=== PATIENT | male | born 1955 | race Caucasian/White ===

== ENCOUNTER 2017-02-27 23:52 | Emergency (ER) | payer OTHER ==
[~2017-02-27] VITALS: Ht 188 cm; Wt 66.4 kg
[~2017-02-27 23:52] MED LIST: AMOX TR-K CLV1 EAC4 PO; ASPIR 8181 M1 PO; ASPIR-LOW81 MG PO; ASPIRIN325 M1 PO; ASPIRIN81 M1 PO; ATORVASTATIN CA40 MG PO; ATORVASTATIN CA80 MG PO; BACTRIM,SEPT1 TABLET PO; BENICAR20 MG PO; CEFDINIR300 MG PO; CHILD ASPIRIN81 M1 PO; CILOSTAZOL100 MG PO; CIPRO500 MG PO; CIPROFLOXACIN 500 MG PO; CLOPIDOGREL75 MG PO; CLOTRIMAZOLE15 GM TP; CYANOCOBALAM1000 MCG PO; DILAUDID2 MG PO; DILAUDID4 MG PO; DOMPERIDONE; DOMPERIDONE1 GM GT; DOMPERIDONE1 GM PO; ECOTRIN81 M1 PO; ELIQUIS5 MG PO; ENDOCET 5-3251 EACH PO; FLEXERIL10 MG PO; FLOMAX0.4 M1 PO; GABAPENTIN300 MG PO; HYDROMORPHONE HC4 MG PO; KEFLEX500 MG PO; LIPITOR20 MG PO; LIPITOR40 MG PO; LISINOPRIL2.5 MG PO; LO-DOSE ASPIRIN81 M1 PO; LOPRESSOR25 MG PO; MEDROL DOSEPAK4 MG PO; MIRALAX255 GM PO; MOBIC7.5 MG PO; NAPROSYN500 MG PO; NEURONTIN300 MG PO; NEXIUM40 M1 PO; NEXIUM40 MG PO; NICOTINE PATCH1 EAC2 TD; NITROGLYCERIN0.4 MG SL; NORCO 5/3251 TABLET PO; OXYCODONE-ACET1 EACH PO; OXYCODONE-APAP1 EACH PO; PERCOCET 10/1 TABLET PO; PERCOCET 5/31 TABLET PO; PLAVIX75 MG PO; PLETAL50 M1 PO; PLETAL50 MG PO; PRAVASTATIN SOD80 MG PO; PREDNISONE20 MG PO; PROCARDIA XL30 MG PO; PROCTOCORT30 M1 PR; RANITIDINE HCL300 M1 PO; ROXICET 5-3251 EACH PO; SENEXON-S TABL1 EACH PO; SENNA S TABLET1 EACH PO; TORADOL10 MG PO; TYLENOL EXTRA500 MG PO; TYLENOL PM1 CAPLET PO; VALIUM5 MG PO; VITAMIN B12-FO1 EACH PO; Vicodin,Norco 5/325 PO; ZOFRAN ODT4 MG PO; ZOLPIDEM TARTRAT5 MG PO
[2017-02-28 00:23] LABS: HEMATOCRIT 46.6 % (38.0-50.0); MCH 27.8 PG (29.0-34.0); MCHC 32.6 G/DL (30.0-36.0); MCV 85.2 FL (86-99); MEAN PLAT.VOLUME 10.8 uM^3 (9.0-12.4); PLATELET COUNT 232 K/uL (156-360); RBC DIS.WIDTH-CV 17.1 % (11.8-14.6); RBC DIS.WIDTH-SD 52.9 % (39-53); RED BLOOD COUNT 5.47 M/uL (4.00-5.50); WHITE BLOOD COUNT 8.2 K/uL (4.1-10.2)
[2017-02-28 00:29] LABS: CHLORIDE 99 mEq/L (99-109); POTASSIUM 3.6 mEq/L (3.7-5.4); SODIUM 136 mEq/L (136-147)
[2017-02-28 00:32] LABS: GLUCOSE 99 mg/dL (70-99)
[2017-02-28 00:33] LABS: ANION GAP 11 MEQ/L (2-14)
[2017-02-28 00:34] LABS: TOTAL BILIRUBIN 0.6 mg/dL (0.0-1.0)
[2017-02-28 00:35] LABS: ALKALINE PHOSPHATASE 86 IU/L (3-129); GFR ESTIMATE (CALCULATED) > 59 mL/min/
[2017-02-28 00:36] LABS: UREA NITROGEN (BUN) 12 mg/dL (9-23)
[2017-02-28 02:09] VITALS: BP 114/77
== END 2017-02-28 02:10 | disposition home or self-care (01) ==
LOC: EME 23:52
DX: R10.816 Epigastric abdominal tenderness (principal); K92.2 Gastrointestinal hemorrhage, unspecified; R51 Headache; Z98.890 Other specified postprocedural states; Z85.01 Personal history of malignant neoplasm of esophagus; Z79.82 Long term (current) use of aspirin; Z72.0 Tobacco use
CPT/HCPCS: 74177; 80053; 81003; 85027; 99281; 99285

== ENCOUNTER 2017-03-19 20:58 | Observation (INO) | payer OTHER ==
[~2017-03-19] VITALS: Ht 167.6 cm; Wt 64.0 kg
[2017-03-19 22:10] LABS: HEMATOCRIT 40.3 % (38.0-50.0); MCH 28.1 PG (29.0-34.0); MCHC 32.5 G/DL (30.0-36.0); MCV 86.3 FL (86-99); MEAN PLAT.VOLUME 10.8 uM^3 (9.0-12.4); PLATELET COUNT 229 K/uL (156-360); RBC DIS.WIDTH-CV 16.5 % (11.8-14.6); RBC DIS.WIDTH-SD 52.2 % (39-53); RED BLOOD COUNT 4.67 M/uL (4.00-5.50)
[2017-03-19 22:12] LABS: CHLORIDE 95 mEq/L (99-109); POTASSIUM 3.3 mEq/L (3.7-5.4); SODIUM 140 mEq/L (136-147)
[2017-03-19 22:14] LABS: PROTHROMBIN TIME 10.6 (9.2-11.2); PTT 25.6 (25-32)
[2017-03-19 22:14] LABS: GLUCOSE 95 mg/dL (70-99)
[2017-03-19 22:15] LABS: ANION GAP 11 MEQ/L (2-14)
[2017-03-19 22:16] LABS: TOTAL BILIRUBIN 0.5 mg/dL (0.0-1.0)
[2017-03-19 22:17] LABS: BILIRUBIN NEGATIVE; BLOOD NEGATIVE; COLOR YELLOW ((YELLOW)); GLUCOSE (STRIP) NEGATIVE; KETONES NEGATIVE; LEUKOCYTES NEGATIVE; NITRITE NEGATIVE; PROTEIN (STRIP) 30; SPECIFIC GRAVITY 1.008 (1.000-1.030); UROBILINOGEN 0.2 MG/DL (0.2-1.0)
[2017-03-19 22:18] LABS: ALKALINE PHOSPHATASE 68 IU/L (3-129); GFR ESTIMATE (CALCULATED) > 59 mL/min/
[2017-03-19 22:19] LABS: UREA NITROGEN (BUN) 21 mg/dL (9-23)
[2017-03-19 22:20] LABS: ADD MIUA? NO; UCUL ADDED? NO
[2017-03-19 22:21] LABS: LIPASE 6 U/L (1.0-51.0)
[2017-03-20] MEDS ORDERED: RANITIDINE HCL300 MG PO (00:45)
[2017-03-20] MEDS ORDERED: METOPROLOL SUCC25 MG PO (00:45)
[2017-03-20 07:13] VITALS: BP 127/71
[2017-03-20] MEDS ORDERED: METOPROLOL TART25 MG PO (10:35)
[2017-03-20] MEDS ORDERED: NEURONTIN600 MG PO (10:36)
[2017-03-20 12:05] VITALS: BP 104/54
[2017-03-20 13:24] LABS: METH RESISTANT S AUREUS PCR NEGATIVE (NEGATIVE)
[2017-03-20 13:26] LABS: PROBE CHECK PASS; SPECIMEN PROCESSING CONTROL PASS
[2017-03-20 15:12] VITALS: BP 127/76
[2017-03-20 19:00] VITALS: BP 128/78
[2017-03-21] VITALS: BP 126/68
[2017-03-21 04:00] VITALS: BP 132/68
[2017-03-21 07:23] LABS: HEMATOCRIT 37.4 % (38.0-50.0); MCH 27.5 PG (29.0-34.0); MCHC 30.7 G/DL (30.0-36.0); MCV 89.5 FL (86-99); MEAN PLAT.VOLUME 11.9 uM^3 (9.0-12.4); PLATELET COUNT 169 K/uL (156-360); RBC DIS.WIDTH-CV 16.7 % (11.8-14.6); RBC DIS.WIDTH-SD 55.1 % (39-53); RED BLOOD COUNT 4.18 M/uL (4.00-5.50)
[2017-03-21 07:30] LABS: WHITE BLOOD COUNT 4.3 K/uL (4.1-10.2)
[2017-03-21 07:44] LABS: ANION GAP 6 MEQ/L (2-14); CHLORIDE 105 MEQ/L (99-109); GFR ESTIMATE (CALCULATED) > 59 mL/min/; GLUCOSE 80 mg/dL (70-99); SAMPLE HEMOLYSIS CHECK 2; SAMPLE ICTERIC CHECK 0; SAMPLE LIPEMIA CHECK 0; SODIUM 141 MEQ/L (136-147); UREA NITROGEN (BUN) 12 mg/dL (9-23)
[2017-03-21 07:48] LABS: POTASSIUM 4.2 MEQ/L (3.7-5.4)
[2017-03-21 09:16] VITALS: BP 126/69
[2017-03-21] MEDS ORDERED: REGLAN10 MG PO (11:02)
[2017-03-21] MEDS ORDERED: SUCRALFATE1 GM/10 ML PO (11:02)
== END 2017-03-21 13:16 | disposition home or self-care (01) ==
LOC: EME → EDBD 20:58 → EDOF 03-20 05:51 → 5WEST 03-20 07:07
PROVIDERS: Emergency Medicine; Hospitalist; Nurse Practitioner Family
PROC: 0DJ08ZZ Inspection of Upper Intestinal Tract, Via Natural or Artificial Opening Endoscopic (ICD-10-PCS; principal; 2017-03-20)
DX: R11.2 Nausea with vomiting, unspecified (principal); R62.7 Adult failure to thrive; R10.9 Unspecified abdominal pain; I73.9 Peripheral vascular disease, unspecified; I10 Essential (primary) hypertension; Z89.512 Acquired absence of left leg below knee; F17.200 Nicotine dependence, unspecified, uncomplicated; Z85.01 Personal history of malignant neoplasm of esophagus; R13.10 Dysphagia, unspecified; K22.10 Ulcer of esophagus without bleeding; K29.60 Other gastritis without bleeding
CPT/HCPCS: 71260; 74177; 80048; 80053; 81003; 83605; 83690; 85027; 85610; 85730; 86900; 86901; 87641; 93005; 99281; 99285; C9113; G0378; J1644; J2270; J2405; J2704; J2765; J3480; J7030

== ENCOUNTER 2017-03-28 23:33 | Emergency (ER) | payer OTHER ==
[~2017-03-28] VITALS: Ht 182.9 cm; Wt 64.7 kg
[~2017-03-28 23:33] MED LIST changes: +METOPROLOL SUCC25 MG PO; +METOPROLOL TART25 MG PO; +NEURONTIN600 MG PO; +RANITIDINE HCL300 MG PO; +REGLAN10 MG PO; +SUCRALFATE1 GM/10 ML PO
[2017-03-29 00:20] LABS: HEMATOCRIT 41.3 % (38.0-50.0); MCHC 32.4 G/DL (30.0-36.0); MCV 86.4 FL (86-99); MEAN PLAT.VOLUME 10.8 uM^3 (9.0-12.4); PLATELET COUNT 266 K/uL (156-360); RBC DIS.WIDTH-CV 15.7 % (11.8-14.6); RBC DIS.WIDTH-SD 49.5 % (39-53); RED BLOOD COUNT 4.78 M/uL (4.00-5.50); WHITE BLOOD COUNT 6.5 K/uL (4.1-10.2)
[2017-03-29 00:36] LABS: CHLORIDE 104 mEq/L (99-109); POTASSIUM 3.1 mEq/L (3.7-5.4); SODIUM 140 mEq/L (136-147)
[2017-03-29 00:38] LABS: GLUCOSE 95 mg/dL (70-99)
[2017-03-29 00:39] LABS: INTER. NORMALIZED RATIO 1.1; PROTHROMBIN TIME 10.7 (9.2-11.2); PTT 27.8 (25-32)
[2017-03-29 00:40] LABS: ANION GAP 6 MEQ/L (2-14); TOTAL BILIRUBIN 0.5 mg/dL (0.0-1.0)
[2017-03-29 00:42] LABS: ALKALINE PHOSPHATASE 67 IU/L (3-129); GFR ESTIMATE (CALCULATED) > 59 mL/min/
[2017-03-29 00:43] LABS: UREA NITROGEN (BUN) 13 mg/dL (9-23)
[2017-03-29 00:45] LABS: LIPASE 8 U/L (1.0-51.0)
[2017-03-29 01:02] LABS: ADD MIUA? NO; BILIRUBIN NEGATIVE; BLOOD NEGATIVE; COLOR STRAW ((YELLOW)); GLUCOSE (STRIP) NEGATIVE; KETONES NEGATIVE; LEUKOCYTES NEGATIVE; NITRITE NEGATIVE; PROTEIN (STRIP) NEGATIVE; SPECIFIC GRAVITY 1.005 (1.000-1.030); UCUL ADDED? NO; UROBILINOGEN 0.2 MG/DL (0.2-1.0)
[2017-03-29] MEDS ORDERED: ZOFRAN8 MG PO (02:17)
[2017-03-29 03:23] VITALS: BP 130/64
== END 2017-03-29 03:24 | disposition home or self-care (01) ==
LOC: EME → EDBD 23:33 → EME 23:33
PROVIDERS: Emergency Medicine
DX: K25.4 Chronic or unspecified gastric ulcer with hemorrhage (principal); R11.2 Nausea with vomiting, unspecified; E87.6 Hypokalemia; K21.9 Gastro-esophageal reflux disease without esophagitis; G89.29 Other chronic pain; I73.9 Peripheral vascular disease, unspecified; N40.0 Benign prostatic hyperplasia without lower urinary tract symptoms; Z86.718 Personal history of other venous thrombosis and embolism; Z85.01 Personal history of malignant neoplasm of esophagus; Z95.820 Peripheral vascular angioplasty status with implants and grafts; Z89.512 Acquired absence of left leg below knee; F17.200 Nicotine dependence, unspecified, uncomplicated; Z79.82 Long term (current) use of aspirin
CPT/HCPCS: 80053; 81003; 83690; 85027; 85610; 85730; 99281; 99285; C9113; J3480; J7030

== ENCOUNTER 2017-04-07 02:48 | Emergency (ER) | payer OTHER ==
[~2017-04-07] VITALS: Ht 182.9 cm; Wt 69.0 kg
[~2017-04-07 02:48] MED LIST changes: +ZOFRAN8 MG PO
[2017-04-07] MEDS ORDERED: OXYCODONE H5 MG/5 ML PO (03:45)
[2017-04-07 04:05] VITALS: BP 126/74
== END 2017-04-07 04:00 | disposition home or self-care (01) ==
LOC: EME 02:48
DX: R13.10 Dysphagia, unspecified (principal); Z85.01 Personal history of malignant neoplasm of esophagus; R63.4 Abnormal weight loss; Z68.20 Body mass index [BMI] 20.0-20.9, adult; I10 Essential (primary) hypertension; Z90.49 Acquired absence of other specified parts of digestive tract; F17.200 Nicotine dependence, unspecified, uncomplicated

== ENCOUNTER 2017-04-21 01:22 | Emergency (ER) | payer OTHER ==
[~2017-04-21] VITALS: Ht 182.9 cm; Wt 66.8 kg
[~2017-04-21 01:22] MED LIST changes: +OXYCODONE H5 MG/5 ML PO
[2017-04-21 02:32] LABS: MCH 28.3 PG (29.0-34.0); MCHC 32.2 G/DL (30.0-36.0); MEAN PLAT.VOLUME 11.6 uM^3 (9.0-12.4); PLATELET COUNT 227 K/uL (156-360); RBC DIS.WIDTH-SD 48.1 % (39-53); RED BLOOD COUNT 4.66 M/uL (4.00-5.50); WHITE BLOOD COUNT 10.4 K/uL (4.1-10.2)
[2017-04-21 02:35] LABS: CHLORIDE 112 mEq/L (99-109); POTASSIUM 2.8 mEq/L (3.7-5.4); SODIUM 140 mEq/L (136-147)
[2017-04-21 02:37] LABS: GLUCOSE 58 mg/dL (70-99)
[2017-04-21 02:38] LABS: ANION GAP 6 MEQ/L (2-14)
[2017-04-21 02:41] LABS: GFR ESTIMATE (CALCULATED) > 59 mL/min/
[2017-04-21 02:42] LABS: UREA NITROGEN (BUN) 19 mg/dL (9-23)
[2017-04-21 02:43] LABS: CREATINE KINASE 62 IU/L (1-294); TOTAL CK 62 IU/L (1-294)
[2017-04-21 02:45] LABS: PROTHROMBIN TIME 10.2 (9.2-11.2); PTT 24.3 (25-32)
[2017-04-21 02:47] LABS: TROP-I INTERPRETATION NEGATIVE; TROPONIN-I < 0.01 ng/mL (0.0-0.30)
[2017-04-21 02:50] LABS: CK-MB 1.1 ng/mL (0.0-4.9)
[2017-04-21] MEDS ORDERED: PANTOPRAZOLE SO40 MG PO (05:23)
[2017-04-21] MEDS ORDERED: LASIX40 MG PO (05:24)
[2017-04-21 06:10] VITALS: BP 111/55
== END 2017-04-21 06:11 | disposition short-term general hospital (02) ==
LOC: EME 01:22
PROVIDERS: Emergency Medicine
DX: T82.392A Other mechanical complication of femoral arterial graft (bypass), initial encounter (principal); I99.8 Other disorder of circulatory system; I73.9 Peripheral vascular disease, unspecified; I10 Essential (primary) hypertension; Z89.512 Acquired absence of left leg below knee; Z86.718 Personal history of other venous thrombosis and embolism; F17.200 Nicotine dependence, unspecified, uncomplicated
CPT/HCPCS: 71010; 80048; 82550; 82553; 83605; 84484; 85027; 85610; 85730; 93005; 93926; 99281; 99285; J3010

== ENCOUNTER 2017-04-26 23:52 | Emergency (ER) | payer OTHER ==
[~2017-04-26] VITALS: Ht 182.9 cm; Wt 66.3 kg
[~2017-04-26 23:52] MED LIST changes: +LASIX40 MG PO; +PANTOPRAZOLE SO40 MG PO
[2017-04-27 00:01] VITALS: BP 156/96
== END 2017-04-27 02:39 | disposition left against medical advice (07) ==
LOC: EME 23:52
DX: M79.89 Other specified soft tissue disorders (principal); M79.671 Pain in right foot; L53.9 Erythematous condition, unspecified; Z53.21 Procedure and treatment not carried out due to patient leaving prior to being seen by health care provider

== ENCOUNTER 2017-04-28 20:06 | Emergency (ER) | payer OTHER ==
[~2017-04-28] VITALS: Ht 182.9 cm; Wt 66.4 kg
[2017-04-28 21:29] LABS: CHLORIDE 107 mEq/L (99-109); POTASSIUM 3.5 mEq/L (3.7-5.4); SODIUM 142 mEq/L (136-147)
[2017-04-28 21:31] LABS: GLUCOSE 106 mg/dL (70-99)
[2017-04-28 21:32] LABS: ANION GAP 8 MEQ/L (2-14)
[2017-04-28 21:35] LABS: GFR ESTIMATE (CALCULATED) > 59 mL/min/
[2017-04-28 21:36] LABS: MCH 28.8 PG (29.0-34.0); MCHC 31.9 G/DL (30.0-36.0); MCV 90.1 FL (86-99); MEAN PLAT.VOLUME 11.2 uM^3 (9.0-12.4); PLATELET COUNT 211 K/uL (156-360); RBC DIS.WIDTH-CV 15.7 % (11.8-14.6); UREA NITROGEN (BUN) 15 mg/dL (9-23); WHITE BLOOD COUNT 5.2 K/uL (4.1-10.2)
[2017-04-28 22:41] LABS: RED BLOOD COUNT 3.44 M/uL (4.00-5.50)
[2017-04-28 22:47] LABS: PROTHROMBIN TIME 10.3 (9.2-11.2)
[2017-04-29] MEDS ORDERED: CLEOCIN300 MG PO (00:56)
[2017-04-29] MEDS ORDERED: PERCOCET 5/31 TABLET PO (01:00)
[2017-04-29 01:27] VITALS: BP 124/72
== END 2017-04-29 01:25 | disposition home or self-care (01) ==
LOC: EME 20:06
DX: L03.115 Cellulitis of right lower limb (principal); S30.22XA Contusion of scrotum and testes, initial encounter; X58.XXXA Exposure to other specified factors, initial encounter; Z98.890 Other specified postprocedural states; Z95.820 Peripheral vascular angioplasty status with implants and grafts; N43.3 Hydrocele, unspecified; Z79.82 Long term (current) use of aspirin; Z89.512 Acquired absence of left leg below knee; F17.200 Nicotine dependence, unspecified, uncomplicated
CPT/HCPCS: 76870; 80048; 85027; 85610; 85730; 93971; 99281; 99284; J2270; J3010

== ENCOUNTER 2017-04-30 23:48 | Inpatient (IN) | payer OTHER ==
[~2017-04-30] VITALS: Ht 182.9 cm; Wt 73.9 kg
[~2017-04-30 23:48] MED LIST changes: +CLEOCIN300 MG PO
[2017-05-01 01:00] LABS: HEMATOCRIT 30.7 % (38.0-50.0); MCH 28.7 PG (29.0-34.0); MCHC 31.9 G/DL (30.0-36.0); MEAN PLAT.VOLUME 10.9 uM^3 (9.0-12.4); PLATELET COUNT 229 K/uL (156-360); RBC DIS.WIDTH-CV 15.8 % (11.8-14.6); RED BLOOD COUNT 3.41 M/uL (4.00-5.50); WHITE BLOOD COUNT 4.9 K/uL (4.1-10.2)
[2017-05-01 01:09] LABS: CHLORIDE 106 mEq/L (99-109); POTASSIUM 3.7 mEq/L (3.7-5.4); SODIUM 141 mEq/L (136-147)
[2017-05-01 01:11] LABS: GLUCOSE 100 mg/dL (70-99); INTER. NORMALIZED RATIO 1.1; PTT 27.3 (25-32)
[2017-05-01 01:12] LABS: ANION GAP 5 MEQ/L (2-14)
[2017-05-01 01:13] LABS: TOTAL BILIRUBIN 0.6 mg/dL (0.0-1.0)
[2017-05-01 01:15] LABS: ALKALINE PHOSPHATASE 77 IU/L (3-129); GFR ESTIMATE (CALCULATED) > 59 mL/min/
[2017-05-01 01:16] LABS: UREA NITROGEN (BUN) 19 mg/dL (9-23)
[2017-05-01 01:18] LABS: LIPASE 10 U/L (1.0-51.0)
[2017-05-01] MEDS ORDERED: SUCRALFATE1 GM PO (02:49)
[2017-05-01] MEDS ORDERED: ELAVIL10 MG PO (02:50)
[2017-05-01] MEDS ORDERED: ONDANSETRON HCL8 MG PO (02:52)
[2017-05-01] MEDS ORDERED: ECOTRIN325 MG PO (02:52)
[2017-05-01] MEDS ORDERED: ELIQUIS5 MG PO (02:53)
[2017-05-01 05:30] VITALS: BP 156/74
[2017-05-01 07:50] VITALS: BP 134/83
[2017-05-01 12:49] VITALS: BP 147/93
[2017-05-01 15:47] VITALS: BP 149/86
[2017-05-01] MEDS ORDERED: CLEOCIN300 MG PO (17:36)
[2017-05-01] MEDS ORDERED: VENTOLIN HFA18 GM IH (17:39)
[2017-05-01 22:31] VITALS: BP 128/63
[2017-05-02 01:39] VITALS: BP 138/86
[2017-05-02 06:19] VITALS: BP 147/70
[2017-05-02 07:32] VITALS: BP 138/72
[2017-05-02 07:37] LABS: ANION GAP 7 MEQ/L (2-14); CHLORIDE 104 MEQ/L (99-109); GFR ESTIMATE (CALCULATED) > 59 mL/min/; GLUCOSE 90 mg/dL (70-99); POTASSIUM 3.3 MEQ/L (3.7-5.4); SAMPLE HEMOLYSIS CHECK 0; SAMPLE ICTERIC CHECK 0; SAMPLE LIPEMIA CHECK 0; SODIUM 142 MEQ/L (136-147); UREA NITROGEN (BUN) 11 mg/dL (9-23)
[2017-05-02 16:10] VITALS: BP 126/64
[2017-05-03 00:27] VITALS: BP 127/72
[2017-05-03 08:00] VITALS: BP 119/72
[2017-05-03 17:35] VITALS: BP 112/66
[2017-05-03 19:16] VITALS: BP 124/64
[2017-05-03 23:33] VITALS: BP 106/75
[2017-05-04 03:47] VITALS: BP 116/61
[2017-05-04 07:11] VITALS: BP 128/65
[2017-05-04] MEDS ORDERED: BACTRIM,SEPT1 TABLET PO (12:51)
== END 2017-05-04 14:13 | disposition home or self-care (01) | DRG 603 ==
LOC: EME 23:48 → EDOF 05-01 02:20 → 2EASTP 05-01 02:20
PROVIDERS: Emergency Medicine; Internal Medicine
DX: L03.115 Cellulitis of right lower limb (principal); I73.9 Peripheral vascular disease, unspecified; D64.9 Anemia, unspecified; I10 Essential (primary) hypertension; C15.9 Malignant neoplasm of esophagus, unspecified; Z82.49 Family history of ischemic heart disease and other diseases of the circulatory system; Z89.512 Acquired absence of left leg below knee; Z87.891 Personal history of nicotine dependence
CPT/HCPCS: 73610; 80048; 80053; 80202; 83605; 83690; 85027; 85610; 85730; 87040; 99202; 99281; 99285; J2270; J3370; J7030

== ENCOUNTER 2017-05-06 21:44 | Emergency (ER) | payer OTHER ==
[~2017-05-06] VITALS: Ht 182.9 cm; Wt 67.3 kg
[~2017-05-06 21:44] MED LIST changes: +ECOTRIN325 MG PO; +ELAVIL10 MG PO; +ONDANSETRON HCL8 MG PO; +SUCRALFATE1 GM PO; +VENTOLIN HFA18 GM IH
[2017-05-06 22:25] LABS: CHLORIDE 107 mEq/L (99-109); POTASSIUM 3.7 mEq/L (3.7-5.4)
[2017-05-06 22:26] LABS: SODIUM 139 mEq/L (136-147)
[2017-05-06 22:28] LABS: GLUCOSE 96 mg/dL (70-99)
[2017-05-06 22:29] LABS: ANION GAP 8 MEQ/L (2-14)
[2017-05-06 22:31] LABS: ALKALINE PHOSPHATASE 70 IU/L (3-129); GFR ESTIMATE (CALCULATED) > 59 mL/min/
[2017-05-06 22:32] LABS: TOTAL BILIRUBIN 0.3 mg/dL (0.0-1.0)
[2017-05-06 22:33] LABS: UREA NITROGEN (BUN) 13 mg/dL (9-23)
[2017-05-06 22:44] LABS: HEMATOCRIT 32.1 % (38.0-50.0); MCH 28.4 PG (29.0-34.0); MCHC 31.2 G/DL (30.0-36.0); MCV 91.2 FL (86-99); PLATELET COUNT 253 K/uL (156-360); RBC DIS.WIDTH-CV 15.5 % (11.8-14.6); RBC DIS.WIDTH-SD 51.7 % (39-53); RED BLOOD COUNT 3.52 M/uL (4.00-5.50); WHITE BLOOD COUNT 4.4 K/uL (4.1-10.2)
[2017-05-07] MEDS ORDERED: ZYVOX600 MG PO (02:52)
[2017-05-07 03:09] VITALS: BP 151/96
== END 2017-05-07 03:12 | disposition home or self-care (01) ==
LOC: EME 21:44
DX: L03.115 Cellulitis of right lower limb (principal); I10 Essential (primary) hypertension; K21.9 Gastro-esophageal reflux disease without esophagitis; F17.200 Nicotine dependence, unspecified, uncomplicated; Z85.01 Personal history of malignant neoplasm of esophagus; Z86.718 Personal history of other venous thrombosis and embolism; Z95.820 Peripheral vascular angioplasty status with implants and grafts; Z89.512 Acquired absence of left leg below knee; Z79.01 Long term (current) use of anticoagulants; Z79.82 Long term (current) use of aspirin
CPT/HCPCS: 80053; 85027; 93971; 99281; 99285

== ENCOUNTER 2017-05-11 21:38 | Emergency (ER) | payer OTHER ==
[~2017-05-11] VITALS: Ht 182.9 cm; Wt 68.1 kg
[~2017-05-11 21:38] MED LIST changes: +ZYVOX600 MG PO
[2017-05-11 22:59] LABS: HEMATOCRIT 36.2 % (38.0-50.0); MCH 27.9 PG (29.0-34.0); MCHC 30.9 G/DL (30.0-36.0); MEAN PLAT.VOLUME 11.1 uM^3 (9.0-12.4); PLATELET COUNT 285 K/uL (156-360); RBC DIS.WIDTH-CV 15.1 % (11.8-14.6); RBC DIS.WIDTH-SD 50.3 % (39-53); RED BLOOD COUNT 4.02 M/uL (4.00-5.50); WHITE BLOOD COUNT 5.6 K/uL (4.1-10.2)
[2017-05-11 23:07] LABS: CHLORIDE 105 mEq/L (99-109); POTASSIUM 4.4 mEq/L (3.7-5.4); SODIUM 139 mEq/L (136-147)
[2017-05-11 23:10] LABS: GLUCOSE 87 mg/dL (70-99)
[2017-05-11 23:11] LABS: ANION GAP 7 MEQ/L (2-14)
[2017-05-11 23:13] LABS: ALKALINE PHOSPHATASE 69 IU/L (3-129); GFR ESTIMATE (CALCULATED) > 59 mL/min/
[2017-05-11 23:15] LABS: UREA NITROGEN (BUN) 16 mg/dL (9-23)
[2017-05-11 23:18] LABS: TOTAL BILIRUBIN 0.5 mg/dL (0.0-1.0)
[2017-05-12 01:54] VITALS: BP 133/83
[2017-05-12] MEDS ORDERED: AZITHROMYCIN250 MG1 PO (19:09)
== END 2017-05-12 01:54 | disposition home or self-care (01) ==
LOC: EME 21:38
DX: M79.604 Pain in right leg (principal); Z87.442 Personal history of urinary calculi; Z87.891 Personal history of nicotine dependence
CPT/HCPCS: 80053; 81003; 85027; 93971; 99281; 99284

== ENCOUNTER 2017-05-12 17:12 | Emergency (ER) | payer OTHER ==
[~2017-05-12] VITALS: Ht 182.9 cm; Wt 67.4 kg
[2017-05-12 17:51] LABS: MCH 27.7 PG (29.0-34.0); MCHC 31.1 G/DL (30.0-36.0); MCV 89.2 FL (86-99); MEAN PLAT.VOLUME 10.7 uM^3 (9.0-12.4); PLATELET COUNT 276 K/uL (156-360); RBC DIS.WIDTH-CV 14.9 % (11.8-14.6); RBC DIS.WIDTH-SD 48.5 % (39-53); RED BLOOD COUNT 4.15 M/uL (4.00-5.50); WHITE BLOOD COUNT 8.1 K/uL (4.1-10.2)
[2017-05-12 18:02] LABS: CHLORIDE 103 mEq/L (99-109); POTASSIUM 4.4 mEq/L (3.7-5.4); SODIUM 137 mEq/L (136-147)
[2017-05-12 18:05] LABS: ANION GAP 9 MEQ/L (2-14)
[2017-05-12 18:07] LABS: GFR ESTIMATE (CALCULATED) > 59 mL/min/
[2017-05-12 18:08] LABS: UREA NITROGEN (BUN) 18 mg/dL (9-23)
[2017-05-12 18:09] LABS: GLUCOSE 111 mg/dL (70-99)
[2017-05-12 18:14] LABS: TROP-I INTERPRETATION NEGATIVE; TROPONIN-I < 0.01 ng/mL (0.0-0.30)
[2017-05-12] MEDS ORDERED: AZITHROMYCIN250 MG1 PO (19:09)
[2017-05-12 19:34] VITALS: BP 139/73
== END 2017-05-12 19:37 | disposition home or self-care (01) ==
LOC: EME 17:12
DX: J40 Bronchitis, not specified as acute or chronic (principal); Z87.442 Personal history of urinary calculi; Z85.01 Personal history of malignant neoplasm of esophagus; Z86.718 Personal history of other venous thrombosis and embolism; Z89.512 Acquired absence of left leg below knee; Z87.891 Personal history of nicotine dependence
CPT/HCPCS: 71020; 80048; 84484; 85027; 93005; 99281; 99284

== ENCOUNTER 2017-05-13 20:35 | Inpatient (IN) | payer OTHER ==
[~2017-05-13] VITALS: Ht 182.9 cm; Wt 70.1 kg
[~2017-05-13 20:35] MED LIST changes: +AZITHROMYCIN250 MG1 PO
[2017-05-14 00:31] LABS: CHLORIDE 107 mEq/L (99-109); POTASSIUM 4.5 mEq/L (3.7-5.4); SODIUM 143 mEq/L (136-147)
[2017-05-14 00:32] LABS: GLUCOSE 104 mg/dL (70-99)
[2017-05-14 00:34] LABS: ANION GAP 9 MEQ/L (2-14)
[2017-05-14 00:36] LABS: GFR ESTIMATE (CALCULATED) > 59 mL/min/
[2017-05-14 00:37] LABS: UREA NITROGEN (BUN) 17 mg/dL (9-23)
[2017-05-14 00:38] LABS: PROTHROMBIN TIME 10.4 (9.2-11.2); PTT 26.4 (25-32)
[2017-05-14 00:40] LABS: HEMATOCRIT 29.3 % (38.0-50.0); MCH 27.7 PG (29.0-34.0); MCHC 30.4 G/DL (30.0-36.0); MCV 91.3 FL (86-99); MEAN PLAT.VOLUME 11.2 uM^3 (9.0-12.4); PLATELET COUNT 315 K/uL (156-360); RBC DIS.WIDTH-CV 14.7 % (11.8-14.6); RBC DIS.WIDTH-SD 49.7 % (39-53); RED BLOOD COUNT 3.21 M/uL (4.00-5.50); WHITE BLOOD COUNT 6.1 K/uL (4.1-10.2)
[2017-05-14] MEDS ORDERED: METOCLOPRAMIDE10 MG PO (01:38)
[2017-05-14] MEDS ORDERED: EMERGEN-C 1,01000 MG PO (01:38)
[2017-05-14] MEDS ORDERED: MEN 50 PLUS MU1 EACH PO (01:39)
[2017-05-14 03:57] VITALS: BP 120/60
[2017-05-14 07:12] LABS: TROP-I INTERPRETATION NEGATIVE; TROPONIN-I 0.02 ng/mL (0.0-0.30)
[2017-05-14 07:30] VITALS: BP 113/57
[2017-05-14 12:02] VITALS: BP 103/55
[2017-05-14 12:08] LABS: TROP-I INTERPRETATION NEGATIVE; TROPONIN-I < 0.01 ng/mL (0.0-0.30)
[2017-05-14 17:17] VITALS: BP 111/58
[2017-05-14 20:10] VITALS: BP 124/74
[2017-05-14 23:29] VITALS: BP 95/52
[2017-05-15 03:38] VITALS: BP 101/64
[2017-05-15 08:12] LABS: BASOPHIL COUNT 0.1 K/uL (0-0.1); EOSINOPHIL (%) 2.5 % (0-5); EOSINOPHIL COUNT 0.1 K/uL (0-0.3); HEMATOCRIT 36.3 % (38.0-50.0); IMMATURE GRANULOCYTE (%) 0.2 % (0.0-0.7); INSTRUMENT ABS NEUTROPHIL CT 2.1 K/uL; LYMPHOCYTE COUNT 2.3 K/uL (1.0-2.8); MCH 28.5 PG (29.0-34.0); MCHC 30.9 G/DL (30.0-36.0); MCV 92.4 FL (86-99); MEAN PLAT.VOLUME 11.3 uM^3 (9.0-12.4); MONOCYTE (%) 13.8 % (3-12); MONOCYTE COUNT 0.7 K/uL (0-0.8); NEUTROPHIL (%) 39.2 % (45-76); NEUTROPHIL COUNT 2.1 K/uL (1.8-6.4); PLATELET COUNT 225 K/uL (156-360); RBC DIS.WIDTH-CV 15.2 % (11.8-14.6); RBC DIS.WIDTH-SD 51.7 % (39-53); RED BLOOD COUNT 3.93 M/uL (4.00-5.50); WHITE BLOOD COUNT 5.3 K/uL (4.1-10.2)
[2017-05-15 08:14] VITALS: BP 122/58
[2017-05-15 08:28] LABS: ANION GAP 6 MEQ/L (2-14); CHLORIDE 107 MEQ/L (99-109); GFR ESTIMATE (CALCULATED) > 59 mL/min/; GLUCOSE 83 mg/dL (70-99); POTASSIUM 4.9 MEQ/L (3.7-5.4); SAMPLE HEMOLYSIS CHECK 0; SAMPLE ICTERIC CHECK 0; SAMPLE LIPEMIA CHECK 0; SODIUM 142 MEQ/L (136-147); UREA NITROGEN (BUN) 18 mg/dL (9-23)
[2017-05-15 11:53] VITALS: BP 123/59
== END 2017-05-15 13:12 | disposition home or self-care (01) | DRG 603 ==
LOC: EME 20:35 → EDOF 05-14 03:04 → 5WEST 05-14 03:51 → 3EAST 05-14 14:10 → 5WEST 05-14 14:10 → 3EAST 05-14 19:38
PROVIDERS: Emergency Medicine; Hospitalist
DX: L03.115 Cellulitis of right lower limb (principal); I42.9 Cardiomyopathy, unspecified; I71.2 Thoracic aortic aneurysm, without rupture; F17.210 Nicotine dependence, cigarettes, uncomplicated; G50.0 Trigeminal neuralgia; I10 Essential (primary) hypertension; J44.9 Chronic obstructive pulmonary disease, unspecified; I49.3 Ventricular premature depolarization; I73.9 Peripheral vascular disease, unspecified; I70.211 Atherosclerosis of native arteries of extremities with intermittent claudication, right leg; Z80.8 Family history of malignant neoplasm of other organs or systems; Z82.49 Family history of ischemic heart disease and other diseases of the circulatory system; Z85.01 Personal history of malignant neoplasm of esophagus; Z87.442 Personal history of urinary calculi; Z89.512 Acquired absence of left leg below knee; R00.8 Other abnormalities of heart beat; R53.83 Other fatigue
CPT/HCPCS: 80048; 83605; 84484; 85025; 85027; 85610; 85730; 87040; 87801; 93005; 93926; 99281; 99284; J2270; J2405; J7030

== ENCOUNTER 2017-05-16 06:16 | Emergency (ER) | payer OTHER ==
[~2017-05-16] VITALS: Ht 182.9 cm; Wt 64.1 kg
[~2017-05-16 06:16] MED LIST changes: +EMERGEN-C 1,01000 MG PO; +MEN 50 PLUS MU1 EACH PO; +METOCLOPRAMIDE10 MG PO
[2017-05-16 07:40] LABS: BASOPHIL COUNT 0.1 K/uL (0-0.1); EOSINOPHIL (%) 1.5 % (0-5); EOSINOPHIL COUNT 0.1 K/uL (0-0.3); HEMATOCRIT 36.4 % (38.0-50.0); IMMATURE GRANULOCYTE (%) 0.2 % (0.0-0.7); LYMPHOCYTE COUNT 2.2 K/uL (1.0-2.8); MCH 27.6 PG (29.0-34.0); MCHC 30.8 G/DL (30.0-36.0); MCV 89.7 FL (86-99); MEAN PLAT.VOLUME 11.1 uM^3 (9.0-12.4); MONOCYTE COUNT 0.7 K/uL (0-0.8); NEUTROPHIL (%) 50.1 % (45-76); PLATELET COUNT 256 K/uL (156-360); RBC DIS.WIDTH-CV 14.7 % (11.8-14.6); RBC DIS.WIDTH-SD 48.3 % (39-53); RED BLOOD COUNT 4.06 M/uL (4.00-5.50)
[2017-05-16 07:47] LABS: PROTHROMBIN TIME 9.8 (9.2-11.2)
[2017-05-16 07:53] LABS: GLUCOSE 84 mg/dL (70-99)
[2017-05-16 07:57] LABS: GFR ESTIMATE (CALCULATED) > 59 mL/min/
[2017-05-16 07:58] LABS: UREA NITROGEN (BUN) 18 mg/dL (9-23)
[2017-05-16 08:09] LABS: ANION GAP 7 MEQ/L (2-14); CHLORIDE 106 mEq/L (99-109); POTASSIUM 4.5 mEq/L (3.7-5.4); SODIUM 139 mEq/L (136-147)
[2017-05-16 10:47] VITALS: BP 147/75
== END 2017-05-16 10:50 | disposition home or self-care (01) ==
LOC: EME 06:16
PROVIDERS: Emergency Medicine
DX: M79.604 Pain in right leg (principal); I73.9 Peripheral vascular disease, unspecified; Z89.512 Acquired absence of left leg below knee
CPT/HCPCS: 80048; 85025; 85610; 99281; 99284

== ENCOUNTER 2017-05-19 02:27 | Emergency (ER) | payer OTHER ==
[~2017-05-19] VITALS: Ht 182.9 cm; Wt 65.0 kg
[2017-05-19 03:00] LABS: ADD MIUA? NO; BILIRUBIN NEGATIVE; BLOOD NEGATIVE; COLOR YELLOW ((YELLOW)); GLUCOSE (STRIP) NEGATIVE; KETONES NEGATIVE; LEUKOCYTES NEGATIVE; NITRITE NEGATIVE; PROTEIN (STRIP) NEGATIVE; SPECIFIC GRAVITY 1.016 (1.000-1.030); UCUL ADDED? NO; UROBILINOGEN 0.2 MG/DL (0.2-1.0)
[2017-05-19 03:01] LABS: HEMATOCRIT 37.7 % (38.0-50.0); MCH 27.5 PG (29.0-34.0); MCHC 30.5 G/DL (30.0-36.0); MCV 90.2 FL (86-99); MEAN PLAT.VOLUME 10.5 uM^3 (9.0-12.4); PLATELET COUNT 229 K/uL (156-360); RBC DIS.WIDTH-CV 14.6 % (11.8-14.6); RBC DIS.WIDTH-SD 48.5 % (39-53); RED BLOOD COUNT 4.18 M/uL (4.00-5.50); WHITE BLOOD COUNT 6.3 K/uL (4.1-10.2)
[2017-05-19 03:09] LABS: CHLORIDE 104 mEq/L (99-109); POTASSIUM 4.1 mEq/L (3.7-5.4); SODIUM 140 mEq/L (136-147)
[2017-05-19 03:11] LABS: GLUCOSE 103 mg/dL (70-99)
[2017-05-19 03:12] LABS: ANION GAP 8 MEQ/L (2-14)
[2017-05-19 03:13] LABS: TOTAL BILIRUBIN 0.4 mg/dL (0.0-1.0)
[2017-05-19 03:14] LABS: ALKALINE PHOSPHATASE 72 IU/L (3-129)
[2017-05-19 03:15] LABS: GFR ESTIMATE (CALCULATED) > 59 mL/min/
[2017-05-19 03:18] LABS: LIPASE 11 U/L (1.0-51.0)
[2017-05-19 03:23] LABS: UREA NITROGEN (BUN) 22 mg/dL (9-23)
[2017-05-19 04:16] VITALS: BP 143/96
[2017-05-20] MEDS ORDERED: BENTYL20 MG PO (02:03)
== END 2017-05-19 04:22 | disposition home or self-care (01) ==
LOC: EME 02:27
DX: R10.9 Unspecified abdominal pain (principal); R11.2 Nausea with vomiting, unspecified; I10 Essential (primary) hypertension; J44.9 Chronic obstructive pulmonary disease, unspecified; K21.9 Gastro-esophageal reflux disease without esophagitis; Z87.442 Personal history of urinary calculi; Z87.891 Personal history of nicotine dependence
CPT/HCPCS: 80053; 81003; 83690; 85027; 99281; 99284

== ENCOUNTER 2017-05-19 22:40 | Emergency (ER) | payer OTHER ==
[~2017-05-19] VITALS: Ht 167.6 cm; Wt 65.0 kg
[2017-05-19 23:40] LABS: HEMATOCRIT 35.5 % (38.0-50.0); MCHC 31.3 G/DL (30.0-36.0); MCV 89.4 FL (86-99); MEAN PLAT.VOLUME 11.2 uM^3 (9.0-12.4); PLATELET COUNT 231 K/uL (156-360); RBC DIS.WIDTH-CV 14.6 % (11.8-14.6); RBC DIS.WIDTH-SD 47.7 % (39-53); RED BLOOD COUNT 3.97 M/uL (4.00-5.50); WHITE BLOOD COUNT 7.9 K/uL (4.1-10.2)
[2017-05-19 23:48] LABS: CHLORIDE 104 mEq/L (99-109); POTASSIUM 3.7 mEq/L (3.7-5.4); SODIUM 140 mEq/L (136-147)
[2017-05-19 23:51] LABS: GLUCOSE 117 mg/dL (70-99)
[2017-05-19 23:52] LABS: ANION GAP 9 MEQ/L (2-14)
[2017-05-19 23:54] LABS: ALKALINE PHOSPHATASE 70 IU/L (3-129); GFR ESTIMATE (CALCULATED) > 59 mL/min/
[2017-05-19 23:56] LABS: UREA NITROGEN (BUN) 18 mg/dL (9-23)
[2017-05-19 23:58] LABS: LIPASE 10 U/L (1.0-51.0); TOTAL BILIRUBIN 0.5 mg/dL (0.0-1.0)
[2017-05-20] MEDS ORDERED: BENTYL20 MG PO (02:03)
[2017-05-20 02:48] VITALS: BP 137/90
[2017-05-21] MEDS ORDERED: LORAZEPAM0.5 MG PO (01:07)
== END 2017-05-20 02:49 | disposition home or self-care (01) ==
LOC: EME 22:40
PROVIDERS: Emergency Medicine
DX: R11.2 Nausea with vomiting, unspecified (principal); K59.00 Constipation, unspecified; I10 Essential (primary) hypertension; J44.9 Chronic obstructive pulmonary disease, unspecified; K21.9 Gastro-esophageal reflux disease without esophagitis; I73.9 Peripheral vascular disease, unspecified; I71.4 Abdominal aortic aneurysm, without rupture; N40.0 Benign prostatic hyperplasia without lower urinary tract symptoms; Z85.01 Personal history of malignant neoplasm of esophagus; Z89.512 Acquired absence of left leg below knee; Z86.718 Personal history of other venous thrombosis and embolism; Z95.820 Peripheral vascular angioplasty status with implants and grafts; Z87.891 Personal history of nicotine dependence; Z87.442 Personal history of urinary calculi
CPT/HCPCS: 74177; 80053; 83605; 83690; 85027; 99281; 99285; J2765; J7030

== ENCOUNTER 2017-05-21 00:36 | Emergency (ER) | payer OTHER ==
[~2017-05-21] VITALS: Ht 182.9 cm; Wt 69.4 kg
[~2017-05-21 00:36] MED LIST changes: +BENTYL20 MG PO
[2017-05-21] MEDS ORDERED: LORAZEPAM0.5 MG PO (01:07)
[2017-05-21 01:55] LABS: BASOPHIL COUNT 0.1 K/uL (0-0.1); EOSINOPHIL (%) 1.6 % (0-5); EOSINOPHIL COUNT 0.1 K/uL (0-0.3); HEMATOCRIT 34.5 % (38.0-50.0); IMMATURE GRANULOCYTE (%) 0.3 % (0.0-0.7); INSTRUMENT ABS NEUTROPHIL CT 3.7 K/uL; LYMPHOCYTE COUNT 2.2 K/uL (1.0-2.8); MCH 27.6 PG (29.0-34.0); MCV 88.9 FL (86-99); MEAN PLAT.VOLUME 11.4 uM^3 (9.0-12.4); MONOCYTE (%) 10.6 % (3-12); MONOCYTE COUNT 0.7 K/uL (0-0.8); NEUTROPHIL (%) 54.6 % (45-76); NEUTROPHIL COUNT 3.7 K/uL (1.8-6.4); PLATELET COUNT 214 K/uL (156-360); RBC DIS.WIDTH-CV 14.6 % (11.8-14.6); RBC DIS.WIDTH-SD 46.9 % (39-53); RED BLOOD COUNT 3.88 M/uL (4.00-5.50); WHITE BLOOD COUNT 6.8 K/uL (4.1-10.2)
[2017-05-21 02:05] LABS: CHLORIDE 105 mEq/L (99-109); POTASSIUM 3.7 mEq/L (3.7-5.4); SODIUM 141 mEq/L (136-147)
[2017-05-21 02:07] LABS: GLUCOSE 131 mg/dL (70-99); PROTHROMBIN TIME 10.6 (9.2-11.2); PTT 27.3 (25-32)
[2017-05-21 02:08] LABS: ANION GAP 9 MEQ/L (2-14)
[2017-05-21 02:11] LABS: GFR ESTIMATE (CALCULATED) > 59 mL/min/; UREA NITROGEN (BUN) 14 mg/dL (9-23)
[2017-05-21 05:53] VITALS: BP 135/62
== END 2017-05-21 05:54 | disposition home or self-care (01) ==
LOC: EME 00:36
PROVIDERS: Emergency Medicine
DX: I73.9 Peripheral vascular disease, unspecified (principal); J44.9 Chronic obstructive pulmonary disease, unspecified; I10 Essential (primary) hypertension; K21.9 Gastro-esophageal reflux disease without esophagitis; Z87.442 Personal history of urinary calculi; Z90.49 Acquired absence of other specified parts of digestive tract; Z87.891 Personal history of nicotine dependence
CPT/HCPCS: 75635; 80048; 85025; 85610; 85730; 93005; 99281; 99285; J3010; J7030

== ENCOUNTER 2017-05-24 13:38 | Emergency (ER) | payer OTHER ==
[~2017-05-24] VITALS: Ht 182.9 cm; Wt 65.9 kg
[~2017-05-24 13:38] MED LIST changes: +LORAZEPAM0.5 MG PO
[2017-05-24 17:27] VITALS: BP 132/72
== END 2017-05-24 17:30 | disposition home or self-care (01) ==
LOC: EME 13:38
DX: R78.89 Finding of other specified substances, not normally found in blood (principal); I10 Essential (primary) hypertension; Z89.512 Acquired absence of left leg below knee; Z86.718 Personal history of other venous thrombosis and embolism; Z79.01 Long term (current) use of anticoagulants; Z79.82 Long term (current) use of aspirin; Z82.49 Family history of ischemic heart disease and other diseases of the circulatory system; Z87.891 Personal history of nicotine dependence
CPT/HCPCS: 99281; 99284

== ENCOUNTER 2017-05-27 02:59 | Emergency (ER) | payer OTHER ==
[~2017-05-27] VITALS: Ht 182.9 cm; Wt 69.1 kg
[2017-05-27 04:56] LABS: HEMATOCRIT 37.1 % (38.0-50.0); MCH 27.9 PG (29.0-34.0); MCHC 31.3 G/DL (30.0-36.0); MCV 89.2 FL (86-99); MEAN PLAT.VOLUME 11.3 uM^3 (9.0-12.4); PLATELET COUNT 191 K/uL (156-360); RBC DIS.WIDTH-CV 14.6 % (11.8-14.6); RBC DIS.WIDTH-SD 47.9 % (39-53); RED BLOOD COUNT 4.16 M/uL (4.00-5.50); WHITE BLOOD COUNT 6.1 K/uL (4.1-10.2)
[2017-05-27 05:05] LABS: CHLORIDE 105 mEq/L (99-109); POTASSIUM 3.8 mEq/L (3.7-5.4); SODIUM 140 mEq/L (136-147)
[2017-05-27 05:06] LABS: GLUCOSE 117 mg/dL (70-99)
[2017-05-27 05:08] LABS: ANION GAP 5 MEQ/L (2-14)
[2017-05-27 05:10] LABS: GFR ESTIMATE (CALCULATED) > 59 mL/min/
[2017-05-27 05:11] LABS: UREA NITROGEN (BUN) 13 mg/dL (9-23)
[2017-05-27 06:16] VITALS: BP 124/71
[2017-05-27] MEDS ORDERED: KLOR-CON M2020 MEQ PO (23:34)
[2017-05-27] MEDS ORDERED: VITAMIN C1000 MG PO (23:34)
[2017-05-27] MEDS ORDERED: FUROSEMIDE20 MG PO (23:34)
== END 2017-05-27 06:17 | disposition home or self-care (01) ==
LOC: EME 02:59
PROVIDERS: Emergency Medicine
DX: I73.9 Peripheral vascular disease, unspecified (principal); I10 Essential (primary) hypertension; Z79.01 Long term (current) use of anticoagulants; Z79.82 Long term (current) use of aspirin; Z87.891 Personal history of nicotine dependence; Z89.512 Acquired absence of left leg below knee; Z86.718 Personal history of other venous thrombosis and embolism
CPT/HCPCS: 80048; 83605; 85027; 99281; 99284; J2270

== ENCOUNTER 2017-05-27 17:18 | Observation (INO) | payer OTHER ==
[~2017-05-27] VITALS: Ht 182.9 cm; Wt 70.1 kg
[2017-05-27 18:09] LABS: HEMATOCRIT 37.5 % (38.0-50.0); MCH 27.8 PG (29.0-34.0); MCHC 31.5 G/DL (30.0-36.0); MCV 88.4 FL (86-99); MEAN PLAT.VOLUME 11.8 uM^3 (9.0-12.4); PLATELET COUNT 211 K/uL (156-360); RBC DIS.WIDTH-CV 14.5 % (11.8-14.6); RBC DIS.WIDTH-SD 47.2 % (39-53); RED BLOOD COUNT 4.24 M/uL (4.00-5.50); WHITE BLOOD COUNT 7.5 K/uL (4.1-10.2)
[2017-05-27 18:29] LABS: TROP-I INTERPRETATION NEGATIVE; TROPONIN-I 0.02 ng/mL (0.0-0.30)
[2017-05-27 21:20] LABS: CHLORIDE 100 mEq/L (99-109); POTASSIUM 3.8 mEq/L (3.7-5.4); SODIUM 141 mEq/L (136-147)
[2017-05-27 21:23] LABS: ANION GAP 10 MEQ/L (2-14)
[2017-05-27 21:26] LABS: GFR ESTIMATE (CALCULATED) > 59 mL/min/; UREA NITROGEN (BUN) 18 mg/dL (9-23)
[2017-05-27 22:41] LABS: GLUCOSE 93 mg/dL (70-99)
[2017-05-27] MEDS ORDERED: KLOR-CON M2020 MEQ PO (23:34)
[2017-05-27] MEDS ORDERED: FUROSEMIDE20 MG PO (23:34)
[2017-05-27] MEDS ORDERED: VITAMIN C1000 MG PO (23:34)
[2017-05-28 02:36] LABS: TROP-I INTERPRETATION NEGATIVE; TROPONIN-I 0.02 ng/mL (0.0-0.30)
[2017-05-28 07:55] VITALS: BP 151/76
[2017-05-28 08:43] LABS: BASE EXCESS 6.9 mEq/L (-3 to +3); BICARBONATE 30.3 mEq/L (22-26); CARBOXY HGB 1.5 % (0-5); COMMENTS - BLOOD GASES A+C+; FI02 21 %; METHEMOGLOBIN 1.1 % (0-1.5); PCO2 38 mm Hg (35-45); PO2 96 mm Hg (80-100); SITE RR; pH 7.51 (7.35-7.45)
[2017-05-28 09:52] LABS: TROP-I INTERPRETATION NEGATIVE; TROPONIN-I 0.03 ng/mL (0.0-0.30)
[2017-05-28 12:26] VITALS: BP 148/68
[2017-05-28 16:48] VITALS: BP 143/64
[2017-05-28 21:00] VITALS: BP 135/68
[2017-05-29 00:27] VITALS: BP 131/71
[2017-05-29 03:33] LABS: HEMATOCRIT 35.8 % (38.0-50.0); MCH 27.6 PG (29.0-34.0); MCHC 31.3 G/DL (30.0-36.0); MCV 88.2 FL (86-99); MEAN PLAT.VOLUME 11.7 uM^3 (9.0-12.4); PLATELET COUNT 214 K/uL (156-360); RBC DIS.WIDTH-CV 14.7 % (11.8-14.6); RED BLOOD COUNT 4.06 M/uL (4.00-5.50); WHITE BLOOD COUNT 6.9 K/uL (4.1-10.2)
[2017-05-29 03:44] LABS: CHLORIDE 107 mEq/L (99-109); POTASSIUM 3.8 mEq/L (3.7-5.4); SODIUM 143 mEq/L (136-147)
[2017-05-29 03:46] LABS: GLUCOSE 111 mg/dL (70-99)
[2017-05-29 03:47] LABS: ANION GAP 6 MEQ/L (2-14)
[2017-05-29 03:50] LABS: GFR ESTIMATE (CALCULATED) > 59 mL/min/; UREA NITROGEN (BUN) 15 mg/dL (9-23)
[2017-05-29 03:56] LABS: TROP-I INTERPRETATION NEGATIVE; TROPONIN-I 0.01 ng/mL (0.0-0.30)
[2017-05-29 04:57] VITALS: BP 122/55
[2017-05-29 07:00] VITALS: BP 112/63
[2017-05-29] MEDS ORDERED: FUROSEMIDE40 MG PO (10:55)
[2017-05-29] MEDS ORDERED: LOSARTAN POTASS25 MG PO (10:55)
[2017-05-29 11:44] VITALS: BP 99/56
== END 2017-05-29 13:00 | disposition home or self-care (01) ==
LOC: EME 17:18 → 5WEST 05-28 00:53 → EDOF 05-28 00:53 → 5WEST 05-28 07:28
PROVIDERS: Hospitalist; Internal Medicine
DX: R07.9 Chest pain, unspecified (principal); K21.9 Gastro-esophageal reflux disease without esophagitis; I25.10 Atherosclerotic heart disease of native coronary artery without angina pectoris; R10.13 Epigastric pain; R42 Dizziness and giddiness; R11.2 Nausea with vomiting, unspecified; I10 Essential (primary) hypertension; I73.9 Peripheral vascular disease, unspecified; I71.4 Abdominal aortic aneurysm, without rupture; Z87.891 Personal history of nicotine dependence; Z85.01 Personal history of malignant neoplasm of esophagus; Z89.512 Acquired absence of left leg below knee
CPT/HCPCS: 36600; 71020; 80048; 80048 91; 82803; 84484; 85027; 93005; 94640; 94760; 94799; 99202; 99281; 99285; G0378; J2405; J7030

== ENCOUNTER 2017-05-31 16:09 | Emergency (ER) | payer OTHER ==
[~2017-05-31] VITALS: Ht 182.9 cm; Wt 72.7 kg
[~2017-05-31 16:09] MED LIST changes: +FUROSEMIDE20 MG PO; +FUROSEMIDE40 MG PO; +KLOR-CON M2020 MEQ PO; +LOSARTAN POTASS25 MG PO; +VITAMIN C1000 MG PO
[2017-05-31 16:58] LABS: HEMATOCRIT 35.5 % (38.0-50.0); MCH 27.7 PG (29.0-34.0); MCHC 31.8 G/DL (30.0-36.0); MEAN PLAT.VOLUME 11.5 uM^3 (9.0-12.4); PLATELET COUNT 204 K/uL (156-360); RBC DIS.WIDTH-CV 14.4 % (11.8-14.6); RBC DIS.WIDTH-SD 46.2 % (39-53); RED BLOOD COUNT 4.08 M/uL (4.00-5.50); WHITE BLOOD COUNT 5.1 K/uL (4.1-10.2)
[2017-05-31 17:04] LABS: ADD MIUA? NO; BILIRUBIN NEGATIVE; BLOOD NEGATIVE; COLOR YELLOW ((YELLOW)); GLUCOSE (STRIP) NEGATIVE; KETONES NEGATIVE; LEUKOCYTES NEGATIVE; NITRITE NEGATIVE; PROTEIN (STRIP) NEGATIVE; SPECIFIC GRAVITY 1.014 (1.000-1.030); UCUL ADDED? NO; UROBILINOGEN 0.2 MG/DL (0.2-1.0)
[2017-05-31 17:09] LABS: CHLORIDE 101 mEq/L (99-109); POTASSIUM 3.9 mEq/L (3.7-5.4); SODIUM 139 mEq/L (136-147)
[2017-05-31 17:11] LABS: GLUCOSE 104 mg/dL (70-99)
[2017-05-31 17:13] LABS: ANION GAP 9 MEQ/L (2-14); TOTAL BILIRUBIN 0.4 mg/dL (0.0-1.0)
[2017-05-31 17:15] LABS: ALKALINE PHOSPHATASE 81 IU/L (3-129); GFR ESTIMATE (CALCULATED) > 59 mL/min/
[2017-05-31 17:16] LABS: UREA NITROGEN (BUN) 16 mg/dL (9-23)
[2017-05-31 17:18] LABS: LIPASE 9 U/L (1.0-51.0)
[2017-05-31 23:21] LABS: TROP-I INTERPRETATION NEGATIVE; TROPONIN-I 0.02 ng/mL (0.0-0.30)
[2017-05-31] MEDS ORDERED: ZOFRAN ODT4 MG PO (23:30)
[2017-05-31] MEDS ORDERED: ZANTAC300 MG PO (23:30)
[2017-06-01 00:17] VITALS: BP 103/66
[2017-06-01] MEDS ORDERED: COZAAR25 MG PO (21:34)
[2017-06-02] MEDS ORDERED: NEXIUM40 MG PO (08:42)
== END 2017-06-01 00:15 | disposition home or self-care (01) ==
LOC: EME 16:09
PROVIDERS: Physician Assistant
DX: R10.13 Epigastric pain (principal); R42 Dizziness and giddiness; R11.0 Nausea; R10.30 Lower abdominal pain, unspecified; Z85.01 Personal history of malignant neoplasm of esophagus; Z87.442 Personal history of urinary calculi; J44.9 Chronic obstructive pulmonary disease, unspecified; I73.9 Peripheral vascular disease, unspecified; I10 Essential (primary) hypertension; Z87.891 Personal history of nicotine dependence
CPT/HCPCS: 71010; 71275; 74174; 80053; 81003; 83690; 84484; 85027; 93005; 99281; 99285; J2405; J7030; S0028

== ENCOUNTER 2017-06-01 18:08 | Observation (INO) | payer OTHER ==
[~2017-06-01] VITALS: Ht 182.9 cm; Wt 72.0 kg
[~2017-06-01 18:08] MED LIST changes: +ZANTAC300 MG PO
[2017-06-01 18:43] LABS: EOSINOPHIL (%) 0.3 % (0-5); HEMATOCRIT 35.3 % (38.0-50.0); IMMATURE GRANULOCYTE (%) 0.2 % (0.0-0.7); INSTRUMENT ABS NEUTROPHIL CT 3.9 K/uL; LYMPHOCYTE COUNT 1.2 K/uL (1.0-2.8); MCH 26.9 PG (29.0-34.0); MCHC 30.9 G/DL (30.0-36.0); MCV 87.2 FL (86-99); MEAN PLAT.VOLUME 11.5 uM^3 (9.0-12.4); MONOCYTE (%) 9.2 % (3-12); MONOCYTE COUNT 0.5 K/uL (0-0.8); NEUTROPHIL (%) 68.2 % (45-76); NEUTROPHIL COUNT 3.9 K/uL (1.8-6.4); PLATELET COUNT 194 K/uL (156-360); RBC DIS.WIDTH-CV 14.2 % (11.8-14.6); RBC DIS.WIDTH-SD 45.5 % (39-53); RED BLOOD COUNT 4.05 M/uL (4.00-5.50); WHITE BLOOD COUNT 5.8 K/uL (4.1-10.2)
[2017-06-01 18:53] LABS: CHLORIDE 103 mEq/L (99-109); MAGNESIUM 2.1 mg/dL (1.3-2.7); SODIUM 138 mEq/L (136-147)
[2017-06-01 18:55] LABS: GLUCOSE 110 mg/dL (70-99)
[2017-06-01 18:56] LABS: ANION GAP 8 MEQ/L (2-14)
[2017-06-01 18:57] LABS: TOTAL BILIRUBIN 0.4 mg/dL (0.0-1.0)
[2017-06-01 18:59] LABS: ALKALINE PHOSPHATASE 81 IU/L (3-129); GFR ESTIMATE (CALCULATED) > 59 mL/min/
[2017-06-01 19:00] LABS: UREA NITROGEN (BUN) 17 mg/dL (9-23)
[2017-06-01 19:05] LABS: TROP-I INTERPRETATION NEGATIVE; TROPONIN-I 0.02 ng/mL (0.0-0.30)
[2017-06-01] MEDS ORDERED: COZAAR25 MG PO (21:34)
[2017-06-02 01:36] LABS: TROP-I INTERPRETATION NEGATIVE; TROPONIN-I 0.02 ng/mL (0.0-0.30)
[2017-06-02 04:00] VITALS: BP 120/80
[2017-06-02 05:51] LABS: METH RESISTANT S AUREUS PCR NEGATIVE (NEGATIVE)
[2017-06-02 05:54] LABS: PROBE CHECK PASS; SPECIMEN PROCESSING CONTROL PASS
[2017-06-02 06:02] LABS: HEMATOCRIT 33.9 % (38.0-50.0); MCH 28.3 PG (29.0-34.0); MCHC 31.9 G/DL (30.0-36.0); MCV 88.7 FL (86-99); MEAN PLAT.VOLUME 11.8 uM^3 (9.0-12.4); PLATELET COUNT 187 K/uL (156-360); RBC DIS.WIDTH-CV 14.4 % (11.8-14.6); RBC DIS.WIDTH-SD 46.6 % (39-53); RED BLOOD COUNT 3.82 M/uL (4.00-5.50); WHITE BLOOD COUNT 4.8 K/uL (4.1-10.2)
[2017-06-02 06:33] LABS: ANION GAP 7 MEQ/L (2-14); CHLORIDE 105 MEQ/L (99-109); GFR ESTIMATE (CALCULATED) > 59 mL/min/; GLUCOSE 97 mg/dL (70-99); POTASSIUM 3.8 MEQ/L (3.7-5.4); SAMPLE HEMOLYSIS CHECK 0; SAMPLE ICTERIC CHECK 0; SAMPLE LIPEMIA CHECK 0; SODIUM 143 MEQ/L (136-147); UREA NITROGEN (BUN) 11 mg/dL (9-23)
[2017-06-02 07:01] LABS: TROP-I INTERPRETATION NEGATIVE; TROPONIN-I 0.03 ng/mL (0.0-0.30)
[2017-06-02 07:33] VITALS: BP 139/63
[2017-06-02] MEDS ORDERED: NEXIUM40 MG PO (08:42)
== END 2017-06-02 10:22 | disposition home or self-care (01) ==
LOC: EME → EDBD 18:08 → EME 18:08 → EDOF 23:01 → 5WEST 23:01
PROVIDERS: Emergency Medicine; Hospitalist; Internal Medicine
DX: F41.9 Anxiety disorder, unspecified (principal); R07.9 Chest pain, unspecified; G62.9 Polyneuropathy, unspecified; I99.9 Unspecified disorder of circulatory system; Z89.512 Acquired absence of left leg below knee; I10 Essential (primary) hypertension; D64.9 Anemia, unspecified; K21.9 Gastro-esophageal reflux disease without esophagitis; Z95.820 Peripheral vascular angioplasty status with implants and grafts; R53.1 Weakness; F17.200 Nicotine dependence, unspecified, uncomplicated; Z85.01 Personal history of malignant neoplasm of esophagus; Z86.718 Personal history of other venous thrombosis and embolism; Z82.49 Family history of ischemic heart disease and other diseases of the circulatory system; Z80.8 Family history of malignant neoplasm of other organs or systems
CPT/HCPCS: 71010; 80048; 80053; 83735; 84484; 85025; 85027; 87641; 93005; 99281; 99285; G0378; J7120

== ENCOUNTER 2017-06-04 22:46 | Emergency (ER) | payer OTHER ==
[~2017-06-04] VITALS: Ht 190.5 cm; Wt 61.4 kg
[~2017-06-04 22:46] MED LIST changes: +COZAAR25 MG PO
[2017-06-05 02:40] LABS: MCHC 30.9 G/DL (30.0-36.0); MCV 87.5 FL (86-99); MEAN PLAT.VOLUME 11.8 uM^3 (9.0-12.4); PLATELET COUNT 212 K/uL (156-360); RBC DIS.WIDTH-CV 13.9 % (11.8-14.6); WHITE BLOOD COUNT 6.2 K/uL (4.1-10.2)
[2017-06-05 02:51] LABS: CHLORIDE 105 mEq/L (99-109); POTASSIUM 3.6 mEq/L (3.7-5.4); SODIUM 136 mEq/L (136-147)
[2017-06-05 02:52] LABS: MAGNESIUM 2.1 mg/dL (1.3-2.7)
[2017-06-05 02:54] LABS: GLUCOSE 105 mg/dL (70-99)
[2017-06-05 02:55] LABS: ANION GAP 5 MEQ/L (2-14)
[2017-06-05 02:57] LABS: ALKALINE PHOSPHATASE 72 IU/L (3-129)
[2017-06-05 02:58] LABS: GFR ESTIMATE (CALCULATED) > 59 mL/min/
[2017-06-05 02:59] LABS: UREA NITROGEN (BUN) 18 mg/dL (9-23)
[2017-06-05 03:01] LABS: LIPASE 9 U/L (1.0-51.0); TOTAL BILIRUBIN 0.5 mg/dL (0.0-1.0)
[2017-06-05] MEDS ORDERED: PHENERGAN25 MG PR (04:11)
[2017-06-05 04:39] VITALS: BP 120/71
== END 2017-06-05 04:41 | disposition home or self-care (01) ==
LOC: EME 22:46
PROVIDERS: Emergency Medicine
DX: R11.2 Nausea with vomiting, unspecified (principal); R19.7 Diarrhea, unspecified; Z86.718 Personal history of other venous thrombosis and embolism; Z89.512 Acquired absence of left leg below knee; Z85.01 Personal history of malignant neoplasm of esophagus; I71.4 Abdominal aortic aneurysm, without rupture; N40.0 Benign prostatic hyperplasia without lower urinary tract symptoms; K21.9 Gastro-esophageal reflux disease without esophagitis; J44.9 Chronic obstructive pulmonary disease, unspecified; I73.9 Peripheral vascular disease, unspecified; I10 Essential (primary) hypertension; Z87.891 Personal history of nicotine dependence; E87.6 Hypokalemia; D64.9 Anemia, unspecified
CPT/HCPCS: 80053; 81003; 83605; 83690; 83735; 83880; 85027; 99281; 99285; J2765; J3480; J7030

== ENCOUNTER 2017-06-10 00:08 | Emergency (ER) | payer OTHER ==
[~2017-06-10] VITALS: Ht 182.9 cm; Wt 68.2 kg
[~2017-06-10 00:08] MED LIST changes: +PHENERGAN25 MG PR
[2017-06-10 01:58] LABS: HEMATOCRIT 36.6 % (38.0-50.0); MCH 27.3 PG (29.0-34.0); MCHC 31.1 G/DL (30.0-36.0); MCV 87.8 FL (86-99); MEAN PLAT.VOLUME 11.7 uM^3 (9.0-12.4); PLATELET COUNT 220 K/uL (156-360); RBC DIS.WIDTH-CV 14.2 % (11.8-14.6); RBC DIS.WIDTH-SD 45.2 % (39-53); RED BLOOD COUNT 4.17 M/uL (4.00-5.50); WHITE BLOOD COUNT 7.5 K/uL (4.1-10.2)
[2017-06-10 02:09] LABS: CHLORIDE 104 mEq/L (99-109); POTASSIUM 3.6 mEq/L (3.7-5.4); SODIUM 142 mEq/L (136-147)
[2017-06-10 02:11] LABS: GLUCOSE 80 mg/dL (70-99)
[2017-06-10 02:13] LABS: ANION GAP 8 MEQ/L (2-14)
[2017-06-10 02:15] LABS: GFR ESTIMATE (CALCULATED) > 59 mL/min/
[2017-06-10 02:16] LABS: UREA NITROGEN (BUN) 15 mg/dL (9-23)
[2017-06-10 03:52] LABS: ALKALINE PHOSPHATASE 79 IU/L (3-129)
[2017-06-10 03:53] LABS: TOTAL BILIRUBIN 0.3 mg/dL (0.0-1.0)
[2017-06-10 03:55] LABS: DIRECT BILIRUBIN 0.1 mg/dL (0.0-0.3)
[2017-06-10 04:27] LABS: LIPASE 18 U/L (1.0-51.0)
[2017-06-10] MEDS ORDERED: ZOFRAN8 MG PO (05:43)
[2017-06-10] MEDS ORDERED: BENTYL20 MG PO (05:43)
[2017-06-10 06:10] LABS: ADD MIUA? NO; BILIRUBIN NEGATIVE; BLOOD NEGATIVE; COLOR STRAW ((YELLOW)); GLUCOSE (STRIP) NEGATIVE; KETONES NEGATIVE; LEUKOCYTES NEGATIVE; NITRITE NEGATIVE; PROTEIN (STRIP) NEGATIVE; SPECIFIC GRAVITY 1.006 (1.000-1.030); UCUL ADDED? NO; UROBILINOGEN 0.2 MG/DL (0.2-1.0)
[2017-06-10 06:29] VITALS: BP 121/57
== END 2017-06-10 06:30 | disposition home or self-care (01) ==
LOC: EME 00:08
DX: R11.2 Nausea with vomiting, unspecified (principal); R79.89 Other specified abnormal findings of blood chemistry; K21.9 Gastro-esophageal reflux disease without esophagitis; J44.9 Chronic obstructive pulmonary disease, unspecified; I10 Essential (primary) hypertension; Z87.442 Personal history of urinary calculi; Z87.891 Personal history of nicotine dependence; Z90.49 Acquired absence of other specified parts of digestive tract
CPT/HCPCS: 80048; 80076; 81003; 83690; 85027; 99281; 99285; J2765; J7030

== ENCOUNTER 2017-06-11 00:50 | Emergency (ER) | payer OTHER ==
[~2017-06-11] VITALS: Ht 182.9 cm; Wt 68.0 kg
[2017-06-11 03:59] LABS: HEMATOCRIT 33.9 % (38.0-50.0); MCHC 30.4 G/DL (30.0-36.0); PLATELET COUNT 201 K/uL (156-360); RBC DIS.WIDTH-CV 14.4 % (11.8-14.6); RBC DIS.WIDTH-SD 46.4 % (39-53); RED BLOOD COUNT 3.81 M/uL (4.00-5.50)
[2017-06-11 04:08] LABS: CHLORIDE 108 mEq/L (99-109); POTASSIUM 3.8 mEq/L (3.7-5.4); SODIUM 143 mEq/L (136-147)
[2017-06-11 04:10] LABS: GLUCOSE 100 mg/dL (70-99)
[2017-06-11 04:12] LABS: ANION GAP 7 MEQ/L (2-14)
[2017-06-11 04:14] LABS: GFR ESTIMATE (CALCULATED) > 59 mL/min/
[2017-06-11 04:15] LABS: UREA NITROGEN (BUN) 20 mg/dL (9-23)
[2017-06-11 04:38] LABS: TOTAL BILIRUBIN 0.3 mg/dL (0.0-1.0)
[2017-06-11 04:39] LABS: ALKALINE PHOSPHATASE 75 IU/L (3-129)
[2017-06-11 04:42] LABS: DIRECT BILIRUBIN 0.1 mg/dL (0.0-0.3)
[2017-06-11 04:43] LABS: LIPASE 25 U/L (1.0-51.0)
[2017-06-11 06:15] VITALS: BP 128/63
== END 2017-06-11 06:22 | disposition home or self-care (01) ==
LOC: EXP 00:50 → EME 00:50 → EXP 06:22
DX: R11.2 Nausea with vomiting, unspecified (principal); R10.9 Unspecified abdominal pain; Z85.01 Personal history of malignant neoplasm of esophagus; D64.9 Anemia, unspecified; R74.0 Nonspecific elevation of levels of transaminase and lactic acid dehydrogenase [LDH]; Z87.442 Personal history of urinary calculi; Z90.49 Acquired absence of other specified parts of digestive tract; I10 Essential (primary) hypertension; Z89.512 Acquired absence of left leg below knee; Z86.718 Personal history of other venous thrombosis and embolism; Z79.01 Long term (current) use of anticoagulants; Z79.82 Long term (current) use of aspirin; Z87.891 Personal history of nicotine dependence
CPT/HCPCS: 80048; 80076; 83690; 85025; 85027; 99281; 99284; J2550

== ENCOUNTER 2017-06-18 02:27 | Emergency (ER) | payer OTHER ==
[~2017-06-18] VITALS: Ht 182.9 cm; Wt 70.0 kg
[~2017-06-18 02:27] MED LIST changes: -NEURONTIN600 MG PO; +NEURONTIN800 MG PO
[2017-06-18 04:33] LABS: HEMATOCRIT 35.2 % (38.0-50.0); MCH 26.7 PG (29.0-34.0); MCV 86.3 FL (86-99); MEAN PLAT.VOLUME 10.7 uM^3 (9.0-12.4); PLATELET COUNT 202 K/uL (156-360); RBC DIS.WIDTH-CV 14.6 % (11.8-14.6); RBC DIS.WIDTH-SD 46.8 % (39-53); RED BLOOD COUNT 4.08 M/uL (4.00-5.50); WHITE BLOOD COUNT 5.9 K/uL (4.1-10.2)
[2017-06-18 04:44] LABS: CHLORIDE 108 mEq/L (99-109); POTASSIUM 4.4 mEq/L (3.7-5.4); SODIUM 140 mEq/L (136-147)
[2017-06-18 04:45] VITALS: BP 125/82
[2017-06-18 04:46] LABS: GLUCOSE 108 mg/dL (70-99)
[2017-06-18 04:47] LABS: ANION GAP 7 MEQ/L (2-14)
[2017-06-18 04:49] LABS: GFR ESTIMATE (CALCULATED) > 59 mL/min/
[2017-06-18 04:50] LABS: UREA NITROGEN (BUN) 16 mg/dL (9-23)
[2017-06-18 04:57] LABS: TROP-I INTERPRETATION NEGATIVE; TROPONIN-I < 0.01 ng/mL (0.0-0.30)
[2017-06-18] MEDS ORDERED: TUMS DUAL ACTI1 EACH PO (16:07)
[2017-06-18] MEDS ORDERED: ZANTAC300 MG PO (16:12)
[2017-06-18] MEDS ORDERED: REGLAN5 MG PO (16:14)
[2017-06-19] MEDS ORDERED: ZOFRAN8 MG PO (11:28)
[2017-06-19] MEDS ORDERED: REGLAN5 MG PO (11:28)
== END 2017-06-18 04:46 | disposition home or self-care (01) ==
LOC: EME 02:27
PROVIDERS: Emergency Medicine
DX: M79.604 Pain in right leg (principal); Z86.718 Personal history of other venous thrombosis and embolism; Z79.01 Long term (current) use of anticoagulants; Z79.82 Long term (current) use of aspirin; I10 Essential (primary) hypertension; Z89.512 Acquired absence of left leg below knee; Z87.891 Personal history of nicotine dependence
CPT/HCPCS: 80048; 84484; 85027; 93005; 93926; 99281; 99284

== ENCOUNTER 2017-06-18 09:14 | Observation (INO) | payer OTHER ==
[~2017-06-18] VITALS: Ht 182.9 cm; Wt 78.0 kg
[2017-06-18 10:53] LABS: HEMATOCRIT 36.6 % (38.0-50.0); MCHC 31.1 G/DL (30.0-36.0); MCV 86.7 FL (86-99); MEAN PLAT.VOLUME 11.3 uM^3 (9.0-12.4); PLATELET COUNT 223 K/uL (156-360); RBC DIS.WIDTH-CV 14.8 % (11.8-14.6); RBC DIS.WIDTH-SD 47.3 % (39-53); RED BLOOD COUNT 4.22 M/uL (4.00-5.50); WHITE BLOOD COUNT 5.3 K/uL (4.1-10.2)
[2017-06-18 11:10] LABS: CHLORIDE 103 mEq/L (99-109); POTASSIUM 4.2 mEq/L (3.7-5.4); SODIUM 139 mEq/L (136-147)
[2017-06-18 11:12] LABS: GLUCOSE 111 mg/dL (70-99)
[2017-06-18 11:14] LABS: ANION GAP 8 MEQ/L (2-14); TOTAL BILIRUBIN 0.4 mg/dL (0.0-1.0)
[2017-06-18 11:16] LABS: ALKALINE PHOSPHATASE 82 IU/L (3-129); GFR ESTIMATE (CALCULATED) > 59 mL/min/
[2017-06-18 11:17] LABS: UREA NITROGEN (BUN) 14 mg/dL (9-23)
[2017-06-18 11:19] LABS: LIPASE 17 U/L (1.0-51.0)
[2017-06-18 11:30] LABS: ADD MIUA? NO; BILIRUBIN NEGATIVE; BLOOD NEGATIVE; COLOR YELLOW ((YELLOW)); GLUCOSE (STRIP) NEGATIVE; KETONES NEGATIVE; LEUKOCYTES NEGATIVE; NITRITE NEGATIVE; PROTEIN (STRIP) NEGATIVE; SPECIFIC GRAVITY 1.011 (1.000-1.030); UCUL ADDED? NO; UROBILINOGEN 0.2 MG/DL (0.2-1.0)
[2017-06-18] MEDS ORDERED: TUMS DUAL ACTI1 EACH PO (16:07)
[2017-06-18] MEDS ORDERED: ZANTAC300 MG PO (16:12)
[2017-06-18] MEDS ORDERED: REGLAN5 MG PO (16:14)
[2017-06-18 18:30] VITALS: BP 137/79
[2017-06-18 20:00] VITALS: BP 138/75
[2017-06-19] VITALS: BP 127/71
[2017-06-19 02:17] LABS: METH RESISTANT S AUREUS PCR NEGATIVE (NEGATIVE)
[2017-06-19 02:33] LABS: PROBE CHECK PASS; SPECIMEN PROCESSING CONTROL PASS
[2017-06-19 04:00] VITALS: BP 105/61
[2017-06-19 07:45] VITALS: BP 129/64
[2017-06-19] MEDS ORDERED: REGLAN5 MG PO (11:28)
[2017-06-19] MEDS ORDERED: ZOFRAN8 MG PO (11:28)
== END 2017-06-19 12:10 | disposition home or self-care (01) ==
LOC: EME 09:14 → EDOF 15:14 → 5WEST 15:14 → ENRESERV 15:15 → 5WEST 17:21 → ENPENDDIS 06-19 11:38 → 5WEST 06-19 12:10
PROVIDERS: Emergency Medicine; Physician Assistant Medical
DX: R11.2 Nausea with vomiting, unspecified (principal); T45.0X6A Underdosing of antiallergic and antiemetic drugs, initial encounter; Z91.128 Patient's intentional underdosing of medication regimen for other reason; Z85.01 Personal history of malignant neoplasm of esophagus; I73.9 Peripheral vascular disease, unspecified; Z89.512 Acquired absence of left leg below knee; Z86.19 Personal history of other infectious and parasitic diseases; I10 Essential (primary) hypertension; D64.9 Anemia, unspecified; K21.9 Gastro-esophageal reflux disease without esophagitis; F17.200 Nicotine dependence, unspecified, uncomplicated
CPT/HCPCS: 80053; 81003; 83605; 83690; 85027; 87641; 93005; 99281; 99284; G0378; J1200; J2405; J2765; J7120; S0028

== ENCOUNTER 2017-07-12 04:34 | Emergency (ER) | payer OTHER ==
[~2017-07-12] VITALS: Ht 182.9 cm; Wt 71.8 kg
[~2017-07-12 04:34] MED LIST changes: +REGLAN5 MG PO; +TUMS DUAL ACTI1 EACH PO
[2017-07-12 05:42] VITALS: BP 124/72
== END 2017-07-12 05:43 | disposition home or self-care (01) ==
LOC: EME 04:34
DX: I73.9 Peripheral vascular disease, unspecified (principal); G89.29 Other chronic pain; M79.604 Pain in right leg; M79.605 Pain in left leg; I10 Essential (primary) hypertension; I71.4 Abdominal aortic aneurysm, without rupture; J44.9 Chronic obstructive pulmonary disease, unspecified; K21.9 Gastro-esophageal reflux disease without esophagitis; N40.0 Benign prostatic hyperplasia without lower urinary tract symptoms; Z85.01 Personal history of malignant neoplasm of esophagus; Z86.718 Personal history of other venous thrombosis and embolism; Z87.442 Personal history of urinary calculi; Z87.891 Personal history of nicotine dependence; Z89.512 Acquired absence of left leg below knee
CPT/HCPCS: 99281; 99284; J1885

== ENCOUNTER 2018-02-06 20:53 | Emergency (ER) | payer OTHER ==
[~2018-02-06] VITALS: Ht 182.9 cm; Wt 83.6 kg
[~2018-02-06 20:53] MED LIST changes: +SKELAXIN800 MG PO
[2018-02-06] MEDS ORDERED: DILAUDID2 MG PO (23:39)
[2018-02-07 00:16] VITALS: BP 142/93
== END 2018-02-07 00:17 | disposition home or self-care (01) ==
LOC: EME 20:53
DX: I70.201 Unspecified atherosclerosis of native arteries of extremities, right leg (principal); I71.4 Abdominal aortic aneurysm, without rupture; N40.0 Benign prostatic hyperplasia without lower urinary tract symptoms; I10 Essential (primary) hypertension; J44.9 Chronic obstructive pulmonary disease, unspecified; Z87.442 Personal history of urinary calculi; Z85.01 Personal history of malignant neoplasm of esophagus; K21.9 Gastro-esophageal reflux disease without esophagitis; F17.200 Nicotine dependence, unspecified, uncomplicated; Z89.512 Acquired absence of left leg below knee
CPT/HCPCS: 93926; 99281; 99283

== ENCOUNTER 2018-02-10 16:54 | Emergency (ER) | payer OTHER ==
[~2018-02-10] VITALS: Ht 182.9 cm; Wt 81.8 kg
[2018-02-10 20:12] LABS: HEMATOCRIT 33.9 % (38.0-50.0); HEMOGLOBIN 10.5 G/DL (12.5-16.6); MCH 23.5 PG (29.0-34.0); MCV 75.8 FL (86-99); PLATELET COUNT 239 K/uL (156-360); RBC DIS.WIDTH-SD 51.7 % (39-53); RED BLOOD COUNT 4.47 M/uL (4.00-5.50); WHITE BLOOD COUNT 7.1 K/uL (4.1-10.2)
[2018-02-10 20:22] LABS: CHLORIDE 107 mEq/L (99-109); POTASSIUM 3.6 mEq/L (3.7-5.4); SODIUM 139 mEq/L (136-147)
[2018-02-10 20:24] LABS: GLUCOSE 91 mg/dL (70-99)
[2018-02-10] MEDS ORDERED: DILAUDID2 MG PO (20:24)
[2018-02-10 20:28] LABS: GFR ESTIMATE (CALCULATED) > 59 mL/min/ (58.99-99999)
[2018-02-10 20:29] LABS: UREA NITROGEN (BUN) 11 mg/dL (9-23)
[2018-02-10 21:05] VITALS: BP 107/56
== END 2018-02-10 21:07 | disposition home or self-care (01) ==
LOC: EME 16:54
PROVIDERS: Emergency Medicine Emergency Medical Services
DX: I73.9 Peripheral vascular disease, unspecified (principal); M79.604 Pain in right leg; G89.29 Other chronic pain; I10 Essential (primary) hypertension; Z89.512 Acquired absence of left leg below knee; Z86.718 Personal history of other venous thrombosis and embolism; Z79.01 Long term (current) use of anticoagulants; Z79.82 Long term (current) use of aspirin; Z85.01 Personal history of malignant neoplasm of esophagus; F17.200 Nicotine dependence, unspecified, uncomplicated
CPT/HCPCS: 80048; 85027; 99281; 99284; J2270

== ENCOUNTER → 2018-02-23 | Outpatient (CLI) | payer OTHER | END | disposition home or self-care (01) | LOC: CDC 14:01 | DX: Z01.810 Encounter for preprocedural cardiovascular examination (principal); I45.10 Unspecified right bundle-branch block; R94.31 Abnormal electrocardiogram [ECG] [EKG] | CPT/HCPCS: 93000 ==

== ENCOUNTER 2018-02-26 09:04 | Inpatient (IN) | payer OTHER ==
[~2018-02-26] VITALS: Ht 167.6 cm; Wt 86.8 kg
[~2018-02-26 09:04] MED LIST changes: +AMBIEN10 MG PO; +LASIX20 MG PO
[2018-02-26 09:41] VITALS: BP 132/78
[2018-02-26 16:12] LABS: HEMATOCRIT 32.2 % (38.0-50.0); HEMOGLOBIN 9.7 G/DL (12.5-16.6); MCHC 30.1 G/DL (30.0-36.0); MCV 76.3 FL (86-99); PLATELET COUNT 274 K/uL (156-360); RBC DIS.WIDTH-CV 18.6 % (11.8-14.6); RBC DIS.WIDTH-SD 50.9 % (39-53); RED BLOOD COUNT 4.22 M/uL (4.00-5.50); WHITE BLOOD COUNT 9.4 K/uL (4.1-10.2)
[2018-02-26 16:35] LABS: CHLORIDE 108 MEQ/L (99-109); CREATININE 0.9 MG/DL (0.6-1.3); GFR ESTIMATE (CALCULATED) > 59 mL/min/ (58.99-99999); GLUCOSE 143 mg/dL (70-99); POTASSIUM 4.3 MEQ/L (3.7-5.4); SODIUM 138 MEQ/L (136-147); TROP-I INTERPRETATION NEGATIVE; TROPONIN-I 0.03 ng/mL (0.0-0.30); UREA NITROGEN (BUN) 13 mg/dL (9-23)
[2018-02-26 19:52] VITALS: BP 107/68
[2018-02-26 23:11] VITALS: BP 100/58
[2018-02-27 03:12] VITALS: BP 100/58
[2018-02-27 06:14] LABS: HEMATOCRIT 28.1 % (38.0-50.0); HEMOGLOBIN 8.5 G/DL (12.5-16.6); MCH 23.2 PG (29.0-34.0); MCHC 30.2 G/DL (30.0-36.0); MCV 76.8 FL (86-99); PLATELET COUNT 270 K/uL (156-360); RBC DIS.WIDTH-CV 18.5 % (11.8-14.6); RED BLOOD COUNT 3.66 M/uL (4.00-5.50); TROP-I INTERPRETATION NEGATIVE; TROPONIN-I 0.01 ng/mL (0.0-0.30); WHITE BLOOD COUNT 9.5 K/uL (4.1-10.2)
[2018-02-27 06:18] LABS: CHLORIDE 108 MEQ/L (99-109); CREATININE 1.1 MG/DL (0.6-1.3); GFR ESTIMATE (CALCULATED) > 59 mL/min/ (58.99-99999); GLUCOSE 179 mg/dL (70-99); POTASSIUM 4.2 MEQ/L (3.7-5.4); SODIUM 136 MEQ/L (136-147); UREA NITROGEN (BUN) 20 mg/dL (9-23)
[2018-02-27 08:03] VITALS: BP 98/58
[2018-02-27 11:17] VITALS: BP 95/51
[2018-02-27 15:34] VITALS: BP 99/54
[2018-02-27 19:41] VITALS: BP 101/64
[2018-02-27 23:30] VITALS: BP 103/57
[2018-02-28 02:42] VITALS: BP 113/58
[2018-02-28 08:18] VITALS: BP 120/77
[2018-02-28 15:40] VITALS: BP 126/56
[2018-02-28 19:50] VITALS: BP 124/82
[2018-02-28 23:27] VITALS: BP 116/68
[2018-03-01 07:32] VITALS: BP 122/77
[2018-03-01 08:52] VITALS: BP 117/76
[2018-03-01 16:20] VITALS: BP 115/67
[2018-03-01 19:31] LABS: BASOPHIL (%) 0.6 % (0-1); BASOPHIL COUNT 0.1 K/uL (0-0.1); EOSINOPHIL (%) 1.3 % (0-5); EOSINOPHIL COUNT 0.1 K/uL (0-0.3); HEMATOCRIT 23.6 % (38.0-50.0); HEMOGLOBIN 7.1 G/DL (12.5-16.6); IMMATURE GRANULOCYTE (%) 0.3 % (0.0-0.7); LYMPHOCYTE (%) 18.9 % (15-42); LYMPHOCYTE COUNT 1.7 K/uL (1.0-2.8); MCH 22.8 PG (29.0-34.0); MCHC 30.1 G/DL (30.0-36.0); MCV 75.9 FL (86-99); MONOCYTE COUNT 1.1 K/uL (0-0.8); NEUTROPHIL (%) 65.9 % (45-76); NEUTROPHIL COUNT 5.7 K/uL (1.8-6.4); PLATELET COUNT 251 K/uL (156-360); RBC DIS.WIDTH-CV 18.3 % (11.8-14.6); RBC DIS.WIDTH-SD 50.1 % (39-53); RED BLOOD COUNT 3.11 M/uL (4.00-5.50); WHITE BLOOD COUNT 8.7 K/uL (4.1-10.2)
[2018-03-01 19:46] LABS: CHLORIDE 103 MEQ/L (99-109); CREATININE 0.7 MG/DL (0.6-1.3); GFR ESTIMATE (CALCULATED) > 59 mL/min/ (58.99-99999); POTASSIUM 3.8 MEQ/L (3.7-5.4); SODIUM 137 MEQ/L (136-147); UREA NITROGEN (BUN) 16 mg/dL (9-23)
[2018-03-01 19:49] LABS: GLUCOSE 97 mg/dL (70-99)
[2018-03-01 20:30] VITALS: BP 129/77
[2018-03-01 22:10] VITALS: BP 105/64
[2018-03-01 23:39] VITALS: BP 103/72
[2018-03-02 02:20] VITALS: BP 115/74
[2018-03-02 03:58] VITALS: BP 141/78
[2018-03-02 06:05] LABS: BASOPHIL (%) 0.6 % (0-1); BASOPHIL COUNT 0.1 K/uL (0-0.1); EOSINOPHIL (%) 1.6 % (0-5); EOSINOPHIL COUNT 0.2 K/uL (0-0.3); HEMATOCRIT 26.3 % (38.0-50.0); HEMOGLOBIN 7.8 G/DL (12.5-16.6); IMMATURE GRANULOCYTE (%) 0.3 % (0.0-0.7); LYMPHOCYTE (%) 17.7 % (15-42); LYMPHOCYTE COUNT 1.8 K/uL (1.0-2.8); MCH 22.8 PG (29.0-34.0); MCHC 29.7 G/DL (30.0-36.0); MCV 76.9 FL (86-99); MONOCYTE (%) 12.5 % (3-12); MONOCYTE COUNT 1.2 K/uL (0-0.8); NEUTROPHIL (%) 67.3 % (45-76); NEUTROPHIL COUNT 6.7 K/uL (1.8-6.4); PLATELET COUNT 272 K/uL (156-360); RBC DIS.WIDTH-CV 18.3 % (11.8-14.6); RBC DIS.WIDTH-SD 50.6 % (39-53); RED BLOOD COUNT 3.42 M/uL (4.00-5.50); WHITE BLOOD COUNT 9.9 K/uL (4.1-10.2)
[2018-03-02 07:41] VITALS: BP 155/75
[2018-03-02 16:17] VITALS: BP 101/61
[2018-03-02 20:34] VITALS: BP 117/81
[2018-03-02 23:53] VITALS: BP 124/90
[2018-03-03] VITALS (10 sets, daily range): BP systolic 101–128; BP diastolic 64–78
[2018-03-03 06:09] LABS: BASOPHIL (%) 0.6 % (0-1); EOSINOPHIL (%) 1.5 % (0-5); EOSINOPHIL COUNT 0.1 K/uL (0-0.3); HEMATOCRIT 23.3 % (38.0-50.0); IMMATURE GRANULOCYTE (%) 0.3 % (0.0-0.7); LYMPHOCYTE (%) 16.2 % (15-42); LYMPHOCYTE COUNT 1.2 K/uL (1.0-2.8); MCH 22.5 PG (29.0-34.0); MCHC 29.6 G/DL (30.0-36.0); MCV 76.1 FL (86-99); MONOCYTE (%) 12.9 % (3-12); MONOCYTE COUNT 0.9 K/uL (0-0.8); NEUTROPHIL (%) 68.5 % (45-76); NEUTROPHIL COUNT 4.9 K/uL (1.8-6.4); PLATELET COUNT 267 K/uL (156-360); RBC DIS.WIDTH-SD 49.2 % (39-53); RED BLOOD COUNT 3.06 M/uL (4.00-5.50); WHITE BLOOD COUNT 7.2 K/uL (4.1-10.2)
[2018-03-03 06:24] LABS: HEMOGLOBIN 6.9 G/DL (12.5-16.6)
[2018-03-04 00:54] VITALS: BP 110/65
[2018-03-04 05:05] LABS: BASOPHIL (%) 0.5 % (0-1); EOSINOPHIL (%) 1.6 % (0-5); EOSINOPHIL COUNT 0.1 K/uL (0-0.3); HEMATOCRIT 26.6 % (38.0-50.0); HEMOGLOBIN 8.6 G/DL (12.5-16.6); IMMATURE GRANULOCYTE (%) 0.3 % (0.0-0.7); LYMPHOCYTE (%) 15.9 % (15-42); MCH 24.5 PG (29.0-34.0); MCHC 32.3 G/DL (30.0-36.0); MCV 75.8 FL (86-99); MONOCYTE (%) 11.7 % (3-12); MONOCYTE COUNT 0.7 K/uL (0-0.8); NEUTROPHIL COUNT 4.3 K/uL (1.8-6.4); PLATELET COUNT 279 K/uL (156-360); RBC DIS.WIDTH-SD 48.8 % (39-53); RED BLOOD COUNT 3.51 M/uL (4.00-5.50); WHITE BLOOD COUNT 6.2 K/uL (4.1-10.2)
[2018-03-04 08:11] VITALS: BP 137/85
[2018-03-04] MEDS ORDERED: OXYCODONE HCL10 MG PO (12:43)
[2018-03-04] MEDS ORDERED: PHENADOZ25 MG PR (12:45)
[2018-03-04] MEDS ORDERED: SENNA8.6 MG PO (12:46)
[2018-03-04] MEDS ORDERED: MILK OF MAGN PO (12:49)
[2018-03-04] MEDS ORDERED: ENOXAPARIN40 MG/0.4 SC (12:49)
[2018-03-04] MEDS ORDERED: NICOTINE PATCH1 EAC2 TD (12:51)
[2018-03-04] MEDS ORDERED: ZOFRAN4 MG PO (12:52)
== END 2018-03-04 11:26 | DRG 240 ==
LOC: SDC → 2SOUTH 15:35 → 3EAST 15:35 → ENRESERV 15:45 → 3EAST 19:42
PROVIDERS: Surgery
PROC: 0Y6H0Z1 Detachment at Right Lower Leg, High, Open Approach (ICD-10-PCS; principal; 2018-02-26)
PROC: 30233N1 Transfusion of Nonautologous Red Blood Cells into Peripheral Vein, Percutaneous Approach (ICD-10-PCS; 2018-03-03)
DX: I70.221 Atherosclerosis of native arteries of extremities with rest pain, right leg (principal); D64.9 Anemia, unspecified; I42.9 Cardiomyopathy, unspecified; I47.1 Supraventricular tachycardia; K21.9 Gastro-esophageal reflux disease without esophagitis; J44.9 Chronic obstructive pulmonary disease, unspecified; I25.10 Atherosclerotic heart disease of native coronary artery without angina pectoris; E78.2 Mixed hyperlipidemia; F17.200 Nicotine dependence, unspecified, uncomplicated; Z89.512 Acquired absence of left leg below knee; Z85.01 Personal history of malignant neoplasm of esophagus; Z79.01 Long term (current) use of anticoagulants; Z79.82 Long term (current) use of aspirin
CPT/HCPCS: 36415; 80048; 84484; 85025; 85027; 86850; 86900; 86901; 86920; 87641; 88307; 93000; 93005; 94799; 97530 GO; 97530 GP; J0690; J1170; J1650; J1885; J2250; J2405; J2795; J3010; J7120; P9016

== ENCOUNTER 2018-03-02 09:39 | Inpatient (IN) | payer OTHER ==
[~2018-03-02] VITALS: Ht 127 cm; Wt 78.1 kg
[2018-03-04 11:48] VITALS: BP 139/86
[2018-03-04] MEDS ORDERED: OXYCODONE HCL10 MG PO (12:43)
[2018-03-04] MEDS ORDERED: PHENADOZ25 MG PR (12:45)
[2018-03-04] MEDS ORDERED: SENNA8.6 MG PO (12:46)
[2018-03-04] MEDS ORDERED: ENOXAPARIN40 MG/0.4 SC (12:49)
[2018-03-04] MEDS ORDERED: MILK OF MAGN PO (12:49)
[2018-03-04] MEDS ORDERED: NICOTINE PATCH1 EAC2 TD (12:51)
[2018-03-04] MEDS ORDERED: ZOFRAN4 MG PO (12:52)
[2018-03-04 15:02] VITALS: BP 118/84
[2018-03-05 05:38] VITALS: BP 115/78
[2018-03-05 07:34] LABS: HEMATOCRIT 29.6 % (38.0-50.0); HEMOGLOBIN 9.4 G/DL (12.5-16.6); MCHC 31.8 G/DL (30.0-36.0); MCV 75.7 FL (86-99); PLATELET COUNT 302 K/uL (156-360); RBC DIS.WIDTH-CV 18.6 % (11.8-14.6); RBC DIS.WIDTH-SD 50.4 % (39-53); RED BLOOD COUNT 3.91 M/uL (4.00-5.50); WHITE BLOOD COUNT 7.3 K/uL (4.1-10.2)
[2018-03-05 08:00] LABS: ALBUMIN 3.2 G/DL (3.2-4.8); ALKALINE PHOSPHATASE 68 IU/L (3-129); ALT (GPT) 36 IU/L (3-49); AST (GOT) 43 IU/L (2-34); CHLORIDE 100 MEQ/L (99-109); CREATININE 0.6 MG/DL (0.6-1.3); GFR ESTIMATE (CALCULATED) > 59 mL/min/ (58.99-99999); GLUCOSE 104 mg/dL (70-99); POTASSIUM 3.8 MEQ/L (3.7-5.4); SODIUM 134 MEQ/L (136-147); TOTAL BILIRUBIN 0.8 MG/DL (0.0-1.0); TOTAL PROTEIN 5.9 G/DL (6.4-8.3); UREA NITROGEN (BUN) 11 mg/dL (9-23)
[2018-03-05 15:46] VITALS: BP 96/56
[2018-03-06 05:20] VITALS: BP 102/61
[2018-03-06 15:07] VITALS: BP 115/63
[2018-03-07 05:59] VITALS: BP 131/71
[2018-03-07 15:54] VITALS: BP 107/58
[2018-03-08 06:04] VITALS: BP 102/63
[2018-03-08 15:43] VITALS: BP 121/75
[2018-03-09 05:02] LABS: ALBUMIN 3.5 g/dL (3.2-4.8); BASOPHIL (%) 0.8 % (0-1); BASOPHIL COUNT 0.1 K/uL (0-0.1); EOSINOPHIL (%) 2.2 % (0-5); EOSINOPHIL COUNT 0.2 K/uL (0-0.3); HEMATOCRIT 30.6 % (38.0-50.0); HEMOGLOBIN 9.6 G/DL (12.5-16.6); IMMATURE GRANULOCYTE (%) 1.1 % (0.0-0.7); MCH 24.2 PG (29.0-34.0); MCHC 31.4 G/DL (30.0-36.0); MCV 77.3 FL (86-99); MONOCYTE (%) 9.8 % (3-12); NEUTROPHIL (%) 66.1 % (45-76); NEUTROPHIL COUNT 6.5 K/uL (1.8-6.4); PLATELET COUNT 348 K/uL (156-360); RBC DIS.WIDTH-CV 19.6 % (11.8-14.6); RBC DIS.WIDTH-SD 53.9 % (39-53); RED BLOOD COUNT 3.96 M/uL (4.00-5.50); WHITE BLOOD COUNT 9.8 K/uL (4.1-10.2)
[2018-03-09 05:03] LABS: CHLORIDE 103 mEq/L (99-109); POTASSIUM 4.3 mEq/L (3.7-5.4); SODIUM 137 mEq/L (136-147)
[2018-03-09 05:05] LABS: GLUCOSE 113 mg/dL (70-99); TOTAL PROTEIN 6.2 g/dL (6.4-8.3)
[2018-03-09 05:07] LABS: TOTAL BILIRUBIN 0.4 mg/dL (0.0-1.0)
[2018-03-09 05:09] LABS: ALKALINE PHOSPHATASE 90 IU/L (3-129); CREATININE 0.8 mg/dL (0.6-1.3); GFR ESTIMATE (CALCULATED) > 59 mL/min/ (58.99-99999)
[2018-03-09 05:10] LABS: AST (GOT) 29 IU/L (2-34); UREA NITROGEN (BUN) 13 mg/dL (9-23)
[2018-03-09 05:12] LABS: ALT (GPT) 39 IU/L (3-49)
[2018-03-09 06:07] VITALS: BP 100/57
[2018-03-09 15:37] VITALS: BP 93/58
[2018-03-10 05:41] VITALS: BP 99/63
[2018-03-10 09:55] VITALS: BP 110/56
[2018-03-10] MEDS ORDERED: THERAGRAN1 TABLET PO (10:51)
[2018-03-10] MEDS ORDERED: MUCINEX600 MG PO (10:51)
[2018-03-10] MEDS ORDERED: FOLIC ACID1 MG PO (10:51)
[2018-03-10] MEDS ORDERED: SPIRIVA RESPIMAT4 GM IH (10:51)
[2018-03-10] MEDS ORDERED: LORATADINE10 M2 PO (10:51)
[2018-03-10] MEDS ORDERED: LEVOFLOXACIN750 MG PO (10:51)
[2018-03-10] MEDS ORDERED: ASCORBIC ACID500 M3 PO (10:51)
== END 2018-03-10 14:33 | disposition home health service (06) | DRG 559 ==
LOC: 3WEST 09:39 → ENPENDDIS 03-10 → 3WEST 03-10 08:34
PROVIDERS: Physical Medicine & Rehabilitation Pain Medicine; Psychiatry & Neurology Neurology
PROC: F07M0ZZ Range of Motion and Joint Mobility Treatment of Musculoskeletal System - Whole Body (ICD-10-PCS; principal; 2018-03-04)
DX: Z47.81 Encounter for orthopedic aftercare following surgical amputation (principal); R26.2 Difficulty in walking, not elsewhere classified; I70.221 Atherosclerosis of native arteries of extremities with rest pain, right leg; Z89.511 Acquired absence of right leg below knee; J14 Pneumonia due to Hemophilus influenzae; J44.0 Chronic obstructive pulmonary disease with (acute) lower respiratory infection; J20.9 Acute bronchitis, unspecified; E87.1 Hypo-osmolality and hyponatremia; G54.6 Phantom limb syndrome with pain; G89.18 Other acute postprocedural pain; D62 Acute posthemorrhagic anemia; E83.51 Hypocalcemia; Z89.512 Acquired absence of left leg below knee; D73.4 Cyst of spleen; K21.9 Gastro-esophageal reflux disease without esophagitis; I10 Essential (primary) hypertension; I71.4 Abdominal aortic aneurysm, without rupture; D35.02 Benign neoplasm of left adrenal gland; E78.5 Hyperlipidemia, unspecified; F41.9 Anxiety disorder, unspecified; F17.210 Nicotine dependence, cigarettes, uncomplicated; Z85.01 Personal history of malignant neoplasm of esophagus; Z87.442 Personal history of urinary calculi; Z82.49 Family history of ischemic heart disease and other diseases of the circulatory system; Z80.8 Family history of malignant neoplasm of other organs or systems
CPT/HCPCS: 71045; 71046; 80053; 85025; 85027; 87070; 87077; 87185; 87205; 94640; 94640 76; 94760; 97110 GO; 97530 GP; 99202; J1650

== ENCOUNTER 2018-03-26 22:18 | Emergency (ER) | payer OTHER ==
[~2018-03-26] VITALS: Ht 182.9 cm; Wt 77.3 kg
[~2018-03-26 22:18] MED LIST changes: +ASCORBIC ACID500 M3 PO; +ENOXAPARIN40 MG/0.4 SC; +FOLIC ACID1 MG PO; +LEVOFLOXACIN750 MG PO; +LORATADINE10 M2 PO; +MILK OF MAGN PO; +MUCINEX600 MG PO; +OXYCODONE HCL10 MG PO; +PHENADOZ25 MG PR; +SENNA8.6 MG PO; +SPIRIVA RESPIMAT4 GM IH; +THERAGRAN1 TABLET PO; +ZOFRAN4 MG PO
[2018-03-26 23:40] LABS: BASOPHIL (%) 0.8 % (0-1); BASOPHIL COUNT 0.1 K/uL (0-0.1); EOSINOPHIL (%) 2.5 % (0-5); EOSINOPHIL COUNT 0.2 K/uL (0-0.3); HEMATOCRIT 34.3 % (38.0-50.0); HEMOGLOBIN 10.4 G/DL (12.5-16.6); IMMATURE GRANULOCYTE (%) 0.1 % (0.0-0.7); LYMPHOCYTE (%) 28.2 % (15-42); LYMPHOCYTE COUNT 2.2 K/uL (1.0-2.8); MCH 23.2 PG (29.0-34.0); MCHC 30.3 G/DL (30.0-36.0); MCV 76.4 FL (86-99); MONOCYTE (%) 11.7 % (3-12); MONOCYTE COUNT 0.9 K/uL (0-0.8); NEUTROPHIL (%) 56.7 % (45-76); NEUTROPHIL COUNT 4.4 K/uL (1.8-6.4); PLATELET COUNT 380 K/uL (156-360); RBC DIS.WIDTH-CV 17.9 % (11.8-14.6); RBC DIS.WIDTH-SD 48.9 % (39-53); RED BLOOD COUNT 4.49 M/uL (4.00-5.50); WHITE BLOOD COUNT 7.7 K/uL (4.1-10.2)
[2018-03-26 23:52] LABS: ALBUMIN 3.8 g/dL (3.2-4.8); CHLORIDE 108 mEq/L (99-109); SODIUM 140 mEq/L (136-147)
[2018-03-26 23:54] LABS: GLUCOSE 104 mg/dL (70-99); TOTAL PROTEIN 6.9 g/dL (6.4-8.3)
[2018-03-26 23:56] LABS: TOTAL BILIRUBIN 0.2 mg/dL (0.0-1.0)
[2018-03-26 23:58] LABS: ALKALINE PHOSPHATASE 108 IU/L (3-129); CREATININE 0.8 mg/dL (0.6-1.3); GFR ESTIMATE (CALCULATED) > 59 mL/min/ (58.99-99999)
[2018-03-26 23:59] LABS: UREA NITROGEN (BUN) 13 mg/dL (9-23)
[2018-03-27] LABS: AST (GOT) 20 IU/L (2-34)
[2018-03-27 00:01] LABS: ALT (GPT) 14 IU/L (3-49)
[2018-03-27 02:48] VITALS: BP 118/81
== END 2018-03-27 02:50 | disposition home or self-care (01) ==
LOC: EME 22:18
PROVIDERS: Emergency Medicine
DX: G89.18 Other acute postprocedural pain (principal); M79.604 Pain in right leg; Z98.890 Other specified postprocedural states; Z89.511 Acquired absence of right leg below knee; I73.9 Peripheral vascular disease, unspecified; F32.9 Major depressive disorder, single episode, unspecified; F41.9 Anxiety disorder, unspecified; F17.200 Nicotine dependence, unspecified, uncomplicated; Z86.718 Personal history of other venous thrombosis and embolism; Z87.442 Personal history of urinary calculi; Z85.01 Personal history of malignant neoplasm of esophagus; Z89.512 Acquired absence of left leg below knee; Z90.49 Acquired absence of other specified parts of digestive tract
CPT/HCPCS: 73701; 80053; 83605; 85025; 99281; 99285; J3010; J7040